=== PATIENT | female | born 1965 | race Caucasian/White ===

== ENCOUNTER 2016-10-23 10:19 | Observation (INO) | payer BC ==
[~2016-10-23] VITALS: Ht 157.5 cm; Wt 78.8 kg
[2016-10-23] MEDS ORDERED: NITROGLYCERIN 2% 1 GM OINT PKT TD STA (11:40)
[2016-10-23] MEDS ORDERED: ASPIRIN 325 MG TAB PO STA (11:40)
[2016-10-23] MEDS ORDERED: LOSA1TAB20 PO (11:59)
[2016-10-23] MEDS ORDERED: MTF1000T PO (11:59)
--- NOTE | 2016-10-23 12:24 | RADRPT ---
PROCEDURE: XR Chest. CLINICAL INDICATION: Chest pain. TECHNIQUE: Single frontal view of the chest was obtained COMPARISON: No. FINDINGS: The cardiomediastinal silhouette, pulmonary vasculature and shubham are unremarkable. The lungs are cl ear. There are degenerative osteophytes in the thoracic spine. The soft tissues are normal. IMPRESSION: 1. Normal chest x-ray. 2. Spondylosis of the thoracic spine. RPTAT:AAJJ Physician Tarsha Date Time Electronically viewed and signed by Physician Tarsha on 10/23/2016 12:24 /
[2016-10-23 12:31] LABS: BASOPHILS % 0.4 % (0.0-2.0); EOSINOPHILS # 0.1 10^3/ul (0.0-0.5); EOSINOPHILS % 0.7 % (0.0-7.0); HEMATOCRIT 39.9 % (37.0-47.0); HEMOGLOBIN 13.6 g/dl (12.0-16.0); LYMPHOCYTES % 31.4 % (15.0-51.0); MEAN CORPUSCULAR VOLUME 79.4 fl (82.0-101.0); MEAN PLATELET VOLUME 9.4 fl (7.4-10.4); MONOCYTE # 0.5 10^3/ul (0.3-0.9); MONOCYTES % 5.6 % (0.0-11.0); NEUTROPHIL # 5.9 10^3/ul (1.6-7.5); NEUTROPHILS % 61.9 % (39.0-77.0); PLATELET COUNT 256 10^3/UL (140-440); RED BLOOD COUNT 5.02 10^6/ul (4.20-5.40); RED CELL DISTRIBUTION WIDTH 13.2 % (11.5-14.5); UNCORRECTED WBC 9.6 10^3/ul (4.8-10.8); WHITE BLOOD COUNT 9.6 10^3/ul (4.8-10.8)
[2016-10-23 12:38] LABS: CONDITION 1; LH ANALYZER COMMENTS 1
[2016-10-23 12:42] LABS: INR 0.9; PROTIME 12.1 Sec (12.2-14.2); PT RATIO 0.9
[2016-10-23 12:43] LABS: PARTIAL THROMBOPLASTIN TIME 26.9 Sec (25.0-35.0)
[2016-10-23 12:45] LABS: CHLORIDE 105 mmol/L (97-110); POTASSIUM 4.1 mmol/L (3.5-5.1); SODIUM 144 mmol/L (135-144)
[2016-10-23 12:48] LABS: ANION GAP 17 (8-16); CARBON DIOXIDE 26 mmol/L (21-31); CREATININE 0.62 mg/dl (0.44-1.00)
[2016-10-23 12:49] LABS: BLOOD UREA NITROGEN 13 mg/dl (7-20); CALCIUM 9.2 mg/dl (8.4-10.2); GLUCOSE 211 mg/dl (70-220)
[2016-10-23] MEDS ORDERED: NOVO7030 SC (12:53)
--- NOTE | 2016-10-23 12:58 | ERA ---
ER Documentation Chief Complaint Date/Time DATE: 10/23/16 TIME: 12:55 Chief Complaint headache and bilateral ear pain with mild sob. onset this morning. no cough HPI This a 51-year-old female with a history of hypertension, diabetes, high cholesterol with CAD in her family history complaining of substernal chest pressure this morning with radiation down both arms along with some shortness of breath and diaphoresis and brief episode of palpitations. Currently she is pain-free. She also states she has a mild headache. No fever no cough no dyspnea on exertion no recent exertional chest pain. She has no prior cardiac workup. ROS All systems reviewed and are negative except as per history of present illness. Medications Home Meds Reported Medications Insulin Isophan/Regular (Humulin 70/30) 100 Units/Ml Susp, 26 UNITS SC BID, EA 10/23/16 Metformin* (Glucophage*) 1,000 Mg Tablet, 1000 MG PO BID, #60 TAB 10/23/16 Losartan-Hydrochlorothiazide (Losartan-HCTZ) 100-25 Mg Tab, 1 TAB PO DAILY, TAB 10/23/16 PMhx/Soc History of Surgery: No Anesthesia Reaction: No Hx Neurological Disorder: No Hx Respiratory Disorders: No Hx Cardiac Disorders: Yes (HTN) Hx Psychiatric Problems: No Hx Alcohol Use: No Hx Substance Use: No Hx Tobacco Use: No Smoking Status: Never smoker FmHx Family History: coronary disease Physical Exam Vitals Vital Signs Date Time Temp Pulse Resp B/P Pulse Ox O2 Delivery O2 Flow Rate FiO2 10/23/16 12:21 Nasal Cannula 2 10/23/16 11:55 98.2 68 20 169/103 100 Nasal Cannula 2.0 10/23/16 10:22 99.4 84 22 139/85 100 Physical Exam Const: Well-developed, well-nourished Head: Atraumatic, normocephalic Eyes: Normal Conjunctiva, PERRLA, EOMI, normal sclera, no nystagmus ENT: Normal External Ears, Nose and Mouth, moist mucus membranes. Neck: Full range of motion. No meningismus, no lymphadenopathy. Resp: Clear to auscultation bilaterally, no wheezing, rhonchi, rales Cardio: Regular rate and rhythm, no murmurs, S1 S2 present Abd: Soft, non tender x 4, non distended. Normal bowel sounds, no guarding or rebound, no pulsitile abdominal masses or bruits Skin: No petechiae or rashes, no ecchymosis , no maculopapular rash Back: No midline or flank tenderness Ext: No cyanosis, or edema, FROM x 4, normal inspection, neurovascularly intact x 4 Neur: Awake and alert, STR 5/5 x 4, sensation intact x 4, no focal findings, cerebellum intact Psych: Normal Mood and Affect Result Diagram: 10/23/16 1215 10/23/16 1215 Results 24 hrs Laboratory Tests Test 10/23/16 12:15 Activated Partial Thromboplast Time 26.9Sec Anion Gap 17 Basophils # 0.010^3/ul Basophils % 0.4% Blood Morphology Comment Blood Urea Nitrogen 13mg/dl Calcium Level 9.2mg/dl Carbon Dioxide Level 26mmol/L Chloride Level 105mmol/L Creatinine 0.62mg/dl Eosinophils # 0.110^3/ul Eosinophils % 0.7% Glucose Level 211mg/dl Hematocrit 39.9% Hemoglobin 13.6g/dl INR International Normalized Ratio 0.90 Lymphocytes # 3.010^3/ul Lymphocytes % 31.4% Mean Corpuscular Hemoglobin 27.0pg Mean Corpuscular Hemoglobin Concent 34.0g/dl Mean Corpuscular Volume 79.4fl Mean Platelet Volume 9.4fl Monocytes # 0.510^3/ul Monocytes % 5.6% Neutrophils # 5.910^3/ul Neutrophils % 61.9% Nucleated Red Blood Cells # 0.010^3/ul Nucleated Red Blood Cells % 0.0/100WBC Platelet Count 03707^3/UL Potassium Level 4.1mmol/L Prothrombin Time 12.1Sec Prothrombin Time Ratio 0.9 Red Blood Count 5.0210^6/ul Red Cell Distribution Width 13.2% Sodium Level 144mmol/L Troponin I Pending White Blood Count 9.610^3/ul Current Medications Medications (Trade) Dose Ordered Sig/Aftab Route PRN Reason Start Time Stop Time Status Last Admin Dose Admin Aspirin (Aspirin) 325 mg ONCE STAT PO 10/23/16 11:40 10/23/16 11:46 DC 10/23/16 12:27 Nitroglycerin (Nitroglycerin 2% Oint) 1 inch ONCE STAT TD 10/23/16 11:40 10/23/16 11:46 DC 10/23/16 12:27 Procedures/MDM EKG: Rate/Rhythm: Normal Sinus Rhythm,NL intervals QRS, ST, QT: NORMAL DE, QRS, QT] Impression: NORMAL EKG PROCEDURE: XR Chest. CLINICAL INDICATION: Chest pain. TECHNIQUE: Single frontal view of the chest was obtained COMPARISON: No. FINDINGS: The cardiomediastinal silhouette, pulmonary vasculature and shubham are unremarkable. The lungs are clear. There are degenerative osteophytes in the thoracic spine. The soft tissues are normal. IMPRESSION: 1. Normal chest x-ray. 2. Spondylosis of the thoracic spine. RPTAT:AAJJ Physician Tarsha Date Time Electronically viewed and signed by Rex Lim Physician on 10/23/2016 12:24 JM/ CC: BRICE LOPEZ DO Patient's symptoms are concerning for cardiac cause will require inpatient workup and continuous monitoring. Further w/u for ischemia, arrhythmia, PE or dissection will be deferred to the inpatient team. Accepting Care Team: Current data and ongoing care discussed. Time: Time of admission Primary Provider: michael Consulting: LAUREN Outstanding Data: none Departure Diagnosis: Primary Impression: Chest pain Qualified Code: R07.9 - Chest pain, unspecified type Condition: Stable BRICE LOPEZ DO Oct 23, 2016 12:58
[2016-10-23 13:04] LABS: TROPONIN-I < 0.012 ng/ml (0.00-0.12)
[2016-10-23] MEDS ORDERED: SOD CHLORIDE 0.9% 1,000 ML IV SCH (14:03)
[2016-10-23] MEDS ORDERED: ONDANSETRON 4 MG INJ IV PRN ×2 (14:30→15:00)
[2016-10-23] MEDS ORDERED: ACETAMINOPHEN 325 MG TAB PO PRN ×2 (14:30→15:00)
[2016-10-23] MEDS ORDERED: HYDROCODONE/APAP (5/325) TAB PO PRN (15:00)
[2016-10-23] MEDS ORDERED: NACL 0.9% 3 ML SYG IV SCH (15:00)
[2016-10-23] MEDS ORDERED: MAGNESIUM HYDROXIDE 30ML CUP PO PRN (15:00)
[2016-10-23] MEDS ORDERED: BISACODYL (EC) 5 MG TAB PO PRN (15:00)
[2016-10-23] MEDS ORDERED: morphine 2 MG INJ IV PRN (15:00)
[2016-10-23] MEDS ORDERED: GLUCAGON 1 MG INJ IM PRN (15:30)
[2016-10-23] MEDS ORDERED: GLUCOSE GEL 15 GRAM TUBE BUCCAL PRN (15:30)
[2016-10-23] MEDS ORDERED: DEXTROSE 50% 50 ML SYRINGE IV PRN ×2 (15:30)
[2016-10-23] MEDS ORDERED: GLUCOSE GEL 15 GRAM TUBE PO PRN ×2 (15:30)
[2016-10-23] MEDS ORDERED: hydrALAzine 20 MG INJ IV PRN (15:30)
[2016-10-23 16:19] VITALS: TEMP 99.1
--- NOTE | 2016-10-23 17:16 | HP ---
DATE OF ADMISSION: 10/23/2016 TIME OF EVALUATION: 1500. REASON FOR ADMISSION: Chest pressure, palpitations, headache, bilateral upper extremity numbness. CONSULTATIONS: Dr. Lon Faust, Cardiology. HISTORY OF PRESENT ILLNESS: This is a 51-year-old female with past medical history of essential hypertension, type 2 diabetes mellitus, and hyperlipidemia who has family history of early coronary artery disease. She came to the emergency room with multiple complaints. One of her chief complaint was chest pressure/pain that started on the morning of 10/23/2016. The patient described her chest pressure as nonexertional. The patient was also complaining of associated bilateral upper extremity numbness and dyspnea along with diaphoresis and palpitations. The patient denied any nausea or vomiting. The patient was also complaining of nonspecific headache as well as bilateral ear pain. The patient denied any cough. The patient verbalized that she has been compliant with all her home medications. As per the patient, she has strong family history of heart disease. Her brother at the age of 55 years because of a heart attack. The patient's mother of heart disease in her 70s. The patient verbalized that she has been admitted to [facility] in 2008 because of similar complaints when she had a left heart catheterization that apparently was "normal." The patient denied any fevers or chills. The patient denied any loss of consciousness. She denied any recent long travels. The patient denied any calf pain. In the emergency room, the patient underwent a 12-lead EKG that showed a normal sinus rhythm. The patient's initial troponin was negative. The patient's chest x-ray was negative for any acute cardiopulmonary findings. The patient was treated with oral aspirin and transdermal nitroglycerin in the emergency room. PAST MEDICAL HISTORY: Essential hypertension, type 2 diabetes mellitus, hyperlipidemia. PAST SURGICAL HISTORY: Appendectomy. HOME MEDICATIONS: 1. Losartan with hydrochlorothiazide 100/25 mg 1 tablet p.o. daily. 2. Humulin 70/30, 26 units subcutaneously b.i.d. 3. Metformin 1000 mg p.o. b.i.d. ALLERGIES: NO KNOWN DRUG ALLERGIES. SOCIAL HISTORY: The patient lives at home with her family. 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 The patient has a remote history of smoking. She quit smoking 6 years ago. The patient is a social drinker. Denies any use of illicit drugs. REVIEW OF SYSTEMS: A 14-point review of systems was made and review of systems was negative other than what is mentioned in history of present illness. PHYSICAL EXAMINATION: VITAL SIGNS: Temperature 98.2, pulse rate 68, respiratory rate 18, blood pressure 131/71, oxygen saturation 98% on low flow O2. GENERAL: This is an obese female lying in bed in no apparent distress. HEENT: Head normocephalic and atraumatic. Eyes: Anicteric sclerae. EXTREMITIES: Clear. ENT: Nasal septum is midline. Oral mucosa is dry. NECK: Short and obese. Unable to visualize any neck veins. CARDIAC: Regular rate and rhythm. No obvious murmurs heard. RESPIRATORY: Bilaterally diminished breath sounds. No adventitious breath sounds. No use of accessory muscles of respiration. GASTROINTESTINAL: Abdomen soft, nontender and nondistended. Bowel sounds positive in all 4 quadrants. GENITOURINARY: Deferred. EXTREMITIES: No cyanosis, no clubbing, no edema. Peripheral pulses palpable. NEUROLOGIC: The patient is awake, alert and oriented. Cranial nerves are grossly intact. LABORATORY AND DIAGNOSTIC DATA: WBC 9.6, hemoglobin 13.6, hematocrit 39.9, platelet count 256. Sodium 144, potassium 4.1, chloride 105, carbon dioxide 26 , anion gap 17, BUN 13, creatinine 0.62, glucose 211, calcium 9.2. Troponin less than 0.012. PT 12.1, INR 0.93, PTT 26.9. Chest x-ray: Normal chest x-ray with spondylosis of the thoracic spine. 12-lead EKG: Normal sinus rhythm. IMPRESSION: This is a 51-year-old female with multiple comorbidities who came to the emergency room with multiple complaints who will be admitted here for further treatment and evaluation. ASSESSMENT AND PLAN: 1. Chest pain/pressure. We will rule out the patient for any acute coronary syndrome. Serial troponins will be obtained. A 2D echocardiogram will be obtained to evaluate the left ventricular ejection fraction. Cardiology consult will be obtained. The patient will be started on aspirin. 2. Essential hypertension. The patient will be started on antihypertensives including p.r.n. antihypertensives for any systolic blood pressure readings greater than 160 mmHg. 3. Dyslipidemia. The patient will be started on a low cholesterol diet. A fasting lipid panel will be obtained. 4. Type 2 diabetes mellitus. The patient will be started on a carbohydrate controlled diet. A hemoglobin A1c will be obtained to evaluate the blood glucose control over the past few weeks. The patient's metformin will be put on hold at this time. The patient will be started on sliding scale insulin along with basal insulin and Lantus insulin. 5. Obesity. Weight reduction will be advised. A fasting lipid panel and hemoglobin A1c will be obtained. Plan. The patient will be admitted to inpatient telemetry floor. The patient will be started on a low cholesterol, carbohydrate controlled diet. The patient will be started on DVT prophylaxis and gastrointestinal prophylaxis. Activities will be as tolerated. Baseline labs including hemoglobin A1c, fasting lipid panel and thyroid panel will be obtained. The rest of the patient's management will be based on the clinical course, the results of diagnostic studies, and inputs from consultants. Based on the patient's clinical presentation, she most probably requires at least 1 midnight's stay for further management and evaluation of her clinical presentation. The case and management of this patient was fully discussed with Dr. Haskins. Approximately 50 minutes was spent on the history and physical of this patient. KENNY HASKINS MD, AM/KATARZYNA Conf#: [id number] DID#: [id number] MTDD
[2016-10-23 17:39] LABS: CK-MB 0.48 ng/ml (0.0-2.4)
[2016-10-23] MEDS: INSULIN ASPART [NOVOLOG] 3 ML PEN SC SCH ×3 (18:00→21:42)
[2016-10-23 18:01] LABS: THYROID STIMULATING HORMONE 3.49 MIU/L (0.465-4.680)
[2016-10-23 20:43] VITALS: PULSE 75
[2016-10-23 20:57] VITALS: BP 149/68; RESP 20
[2016-10-23] MEDS ORDERED: INSULIN GLARGINE [LANtus] 3 ML PEN SC SCH (21:00)
[2016-10-23] MEDS: FAMOTIDINE 20 MG TAB PO SCH (21:36)
[2016-10-23 22:00] VITALS: Ht 157.5 cm; Wt 78.8 kg
[2016-10-23 22:21] LABS: CREATINE KINASE 36 IU/L (23-200)
[2016-10-23 22:29] LABS: CK-MB 0.29 ng/ml (0.0-2.4)
[2016-10-23 22:33] LABS: TROPONIN-I < 0.012 ng/ml (0.00-0.12)
[2016-10-24] VITALS (8 sets, daily range): BP systolic 142–167; BP diastolic 69–81; PULSE 57–70; RESP 17–20
[2016-10-24 06:52] LABS: BASOPHILS % 0.4 % (0.0-2.0); EOSINOPHILS # 0.1 10^3/ul (0.0-0.5); EOSINOPHILS % 1.3 % (0.0-7.0); HEMATOCRIT 35.1 % (37.0-47.0); LYMPHOCYTES # 2.5 10^3/ul (0.8-2.9); LYMPHOCYTES % 27.8 % (15.0-51.0); MEAN CORPUSCULAR HEMOGLOBIN 27.2 pg (29.0-33.0); MEAN CORPUSCULAR HGB CONC 34.1 g/dl (32.0-37.0); MEAN CORPUSCULAR VOLUME 79.7 fl (82.0-101.0); MEAN PLATELET VOLUME 9.2 fl (7.4-10.4); MONOCYTE # 0.7 10^3/ul (0.3-0.9); MONOCYTES % 7.9 % (0.0-11.0); NEUTROPHIL # 5.7 10^3/ul (1.6-7.5); NEUTROPHILS % 62.6 % (39.0-77.0); PLATELET COUNT 208 10^3/UL (140-440); RED BLOOD COUNT 4.41 10^6/ul (4.20-5.40); RED CELL DISTRIBUTION WIDTH 13.4 % (11.5-14.5); UNCORRECTED WBC 9.2 10^3/ul (4.8-10.8); WHITE BLOOD COUNT 9.2 10^3/ul (4.8-10.8)
[2016-10-24 07:15] LABS: CHOLESTEROL 138 mg/dl (100-200); POTASSIUM 3.9 mmol/L (3.5-5.1)
[2016-10-24 07:16] LABS: CHOL/HDL RATIO 2.8 RATIO; HDL CHOLESTEROL 48 mg/dl (37-92); PHOSPHORUS 4.1 mg/dl (2.5-4.9); TRIGLYCERIDES 214 mg/dl (0-149)
[2016-10-24 07:18] LABS: CREATININE 0.65 mg/dl (0.44-1.00)
[2016-10-24 07:19] LABS: CALCIUM 8.5 mg/dl (8.4-10.2)
[2016-10-24 07:28] LABS: TROPONIN-I < 0.012 ng/ml (0.00-0.12)
[2016-10-24 07:29] LABS: CONDITION 1; LH ANALYZER COMMENTS 1
[2016-10-24] MEDS ORDERED: ENOXAPARIN 40 MG/0.4 ML SYG SC SCH (09:00)
[2016-10-24] MEDS ORDERED: LOSARTAN 50 MG TAB PO SCH (09:00)
[2016-10-24] MEDS ORDERED: ASPIRIN 81 MG TAB PO SCH (09:00)
[2016-10-24] MEDS: FAMOTIDINE 20 MG TAB PO SCH (09:03)
[2016-10-24] MEDS: INSULIN ASPART [NOVOLOG] 3 ML PEN SC SCH ×4 (09:07→11:48)
--- NOTE | 2016-10-24 10:24 | PDOCDIS ---
Discharge Instructions CONDITION Patient Condition: Good HOME CARE INSTRUCTIONS: Special Diet: cardiac carb controlled ACTIVITY: Activity Restrictions: No Restrictions FOLLOW UP/APPOINTMENTS Appointments Follow up with cardiology as out-pt for possible Stress test CORNELIO SELF MD Oct 24, 2016 10:24
[2016-10-24] MEDS ORDERED: ASPI81TA3 PO (10:28)
[2016-10-24] MEDS ORDERED: CYCL5TAB PO (10:28)
[2016-10-24 10:30] LABS: BARBITURATES NEGATIVE (NEGATIVE); BENZODIAZEPINES NEGATIVE (NEGATIVE); CANNABINOIDS NEGATIVE (NEGATIVE); COCAINE NEGATIVE (NEGATIVE); OPIATES POSITIVE (NEGATIVE)
[2016-10-24] MEDS ORDERED: IBUP200C PO (10:40)
[2016-10-24] MEDS ORDERED: IBUPROFEN 400 MG TAB PO ONE (11:00)
[2016-10-24] MEDS ORDERED: IBUPROFEN 400 MG TAB PO PRN (11:00)
--- NOTE | 2016-10-24 11:55 | RADRPT ---
Echocardiogram Report Patient Name: PHILLY MALHOTRA Gender: Female Date: 1965 Study Date: 23-Oct-2016 Logistics Administrator: Brenden Jarvis RDCS Location: [facility] Ref. Physician: KENNY RODRIGUEZ Quality: Technically Difficult Study Procedures: Transthoracic echocardiogram with complete 2D, M-Mode, and doppler examination. Indications: Chest Pain. 2D/M Mode Doppler Measurement Value Normal Ranges Measurement Value Normal Ranges LVIDd 2D 4.5 3.5 - 5.6 cm AV Mean Grant 1.4 m/sec LVIDs 2D 2.1 2.1 - 4.1 cm AV Mean PG 10.0 mmHg FS 2D 54.0 % AV Peak Grant 2.1 m/sec LVPWd 2D 0.9 0.6 - 1.1 cm AV Peak PG 18.0 mmHg IVSd 2D 0.9 0.6 - 1.1 cm AV VTI 43.6 cm IVS/LVPW 2D 0.9 LVOT Mean Grant 0.6 m/sec AoR Diam 2D 2.7 2.0 - 3.7 cm LVOT Mean PG 2.0 mmHg LA/Ao 2D 1 0 - 1 LVOT Peak Grant 1.0 m/sec EDV 2D 89.9 cm3 LVOT Peak PG 4.0 mmHg ESV 2D 8.7 cm3 LVOT VTI 23.7 cm LA Dimen 2D 3.6 2.3 - 4.0 cm MV E Peak Grant 1.0 m/sec MV A Peak Grant 1.1 m/sec MV E/A 0.9 MV Decel Time 218 msec MV E/A 0.9 Findings Left Ventricle: Normal left ventricular systolic function. Normal left ventricular cavity size. Normal left ventricular wall thickness. Ejection fraction is visually estimated at 65 %. Tissue Doppler/Mitral Doppler indices are consistent with impaired relaxation (Stage I diastolic dysfunction). Right Ventricle: Normal right ventricular size. Normal right ventricular systolic function. Left Atrium: The left atrium is normal in size. Right Atrium: The right atrium is normal in size. Mitral Valve: Normal appearance and function of the mitral valve with trace physiologic regurgitation. Aortic Valve: Aortic sclerosis without stenosis. Aortic cusps appear mildly calcified. Trace aortic valve regurgitation. Tricuspid Valve: Normal appearance and function of the tricuspid valve with trace physiologic regurgitation. Pericardium: Normal pericardium with no significant pericardial effusion. Aorta: Normal aortic root. IVC: Normal size and normal respiratory collapse consistent with normal right atrial pressure. Conclusions Normal left ventricular systolic function. Normal left ventricular cavity size. Normal left ventricular wall thickness. Ejection fraction is visually estimated at 65 %. Tissue Doppler/Mitral Doppler indices are consistent with impaired relaxation (Stage I diastolic dysfunction). Normal right ventricular size. Normal right ventricular systolic function. The left atrium is normal in size. The right atrium is normal in size. No significant valvular stenosis or regurgitation seen. Normal pericardium with no significant pericardial effusion. Electronically Signed By: Lon Faust 24-Oct-2016 11:55:06 -0800 Patient Name: PHILLY MALHOTRA Study Date: 23-Oct-2016 [id number]
--- NOTE | 2016-10-24 15:26 | CONS ---
Date/Time of Note Date/Time of Note DATE: 10/24/16 TIME: 15:21 Assessment/Plan Assessment/Plan Additional Assessment/Plan Bilateral hand, shoulder, chest pain and headache Preserved ejection fraction Hypertension Diabetes Dyslipidemia -Serial cardiac enzymes have remained negative, ECG with nonspecific findings, echocardiogram within normal limits. Our patient's symptoms are exacerbated by arm movements as well as palpation of the arms and chest. Her symptoms do not appear cardiac in origin. Furthermore, her symptoms have improved since admission. No further inpatient cardiac workup needed at the current time. Consultation Date/Type/Reason Admit Date/Time Oct 23, 2016 at 20:55 Type of Consultation: cv Reason for Consultation Head, shoulder, hand and chest pain Hx of Present Illness This is a 51-year-old female who presents with 3-4 days of bilateral arm, shoulder and headache. Pain feels like pins and needles in her arms. Worse with bending her arms and raising her arms. When she raises her arms, she feels pain radiating down to her shoulders and her chest. She also complains of a headache for the past 2 days. Exertion does not improve or worsen her symptoms. Her symptoms are exacerbated with arm movements mostly. Her chest pain starts from the shoulders and goes down to her chest. She denies any shortness of breath, dizziness or lightheadedness. She still has a headache today. Her shoulder pain and chest pain has improved but her hand numbness continues. She denies any fevers or chills, does have intermittent abdominal pain, denies nausea. 12 point review of systems was performed with all pertinent positives and negatives mentioned above and all else is negative Past Medical History Medical History: diabetes, high cholesterol, hypertension Family History Significant Family History: other (mother secondary to "heart problems" at 75) Social History Alcohol Use: occasionally Smoking Status: Former smoker Drug Use: none Exam/Review of Systems Vital Signs Vitals Vital Signs Date Time Temp Pulse Resp B/P Pulse Ox O2 Delivery O2 Flow Rate FiO2 10/24/16 12:40 70 10/24/16 11:44 97.9 17 159/74 96 10/23/16 15:00 Nasal Cannula 2.0 Intake and Output 10/23/16 10/23/16 10/24/16 15:00 23:00 07:00 Intake Total 400 ml Balance 400 ml Exam No apparent distress Constitutional: alert, obese, oriented Head: normocephalic Neck: supple Respiratory: other (course breath sounds bilaterally, no wheezing) Cardiovascular: other (S1-S2 heard, no murmurs appreciated), regular rate and rhythm Gastrointestinal: bowel sounds, non-tender, other (no guarding), soft Musculoskeletal: other (pain with palpation of bilateral shoulders and range of motion. Pain with palpation of chest wall) Extremities: other (no edema) Results Result Diagram: 10/24/1662110/24/16 0622 Results 24 hrs Laboratory Tests Test 10/23/16 20:02 10/23/16 21:32 10/23/16 21:37 10/24/16 02:21 Bedside Glucose 225 H 258 H 252 H Creatine Kinase 36 Creatine Kinase Index 0.8 Creatinine Kinase MB (Mass) 0.29 Troponin I < 0.012 Test 10/24/16 06:00 10/24/16 06:22 10/24/16 07:57 10/24/16 11:43 Urine Amphetamines Screen NEGATIVE Urine Barbiturates NEGATIVE Urine Benzodiazepines Screen NEGATIVE Urine Cannabinoids NEGATIVE Urine Cocaine Screen NEGATIVE Urine Opiates Screen POSITIVE Urine Test NEGATIVE Anion Gap 13 Basophils # 0.0 Basophils % 0.4 Blood Morphology Comment Blood Urea Nitrogen 11 Calcium Level 8.5 Carbon Dioxide Level 28 Chloride Level 105 Cholesterol Level 138 Cholesterol/HDL Ratio 2.8 Creatinine 0.65 Eosinophils # 0.1 Eosinophils % 1.3 Glucose Level 171 HDL Cholesterol 48 Hematocrit 35.1 L Hemoglobin 12.0 LDL Cholesterol, Calculated 47 Lymphocytes # 2.5 Lymphocytes % 27.8 Magnesium Level 2.0 Mean Corpuscular Hemoglobin 27.2 L Mean Corpuscular Hemoglobin Concent 34.1 Mean Corpuscular Volume 79.7 L Mean Platelet Volume 9.2 Monocytes # 0.7 Monocytes % 7.9 Neutrophils # 5.7 Neutrophils % 62.6 Nucleated Red Blood Cells # 0.0 Nucleated Red Blood Cells % 0.0 Phosphorus Level 4.1 Platelet Count 208 Potassium Level 3.9 Red Blood Count 4.41 Red Cell Distribution Width 13.4 Sodium Level 142 Triglycerides Level 214 H Troponin I < 0.012 White Blood Count 9.2 Bedside Glucose 203 247 H Medications Medications Current Medications Ondansetron HCl (Zofran Inj) 4 mg Q6H PRN IV NAUSEA AND/OR VOMITING; Start 10/23 at 15:00 Aspirin (Aspirin) 81 mg DAILY PO Last administered on 10/24/16 09:03; Admin Dose 81 MG; Start 10/24/16 at 09:00 Acetaminophen (Tylenol Tab) 650 mg Q6H PRN PO PAIN LEVEL 1-3 OR FEVER Last administered on 10/24/16 02:27; Admin Dose 650 MG; Start 10/23/16 at 15:00 Acetaminophen/ Hydrocodone Bitart ([place] (5/325)) 1 tab Q6H PRN PO PAIN LEVEL 4 -6 Last administered on 10/23/16 18:46; Admin Dose 1 TAB; Start 10/23/16 at 15:00 Morphine Sulfate (morphine) 2 mg Q4H PRN IV PAIN LEVEL 7-10; Start 10/23/16 at 15:00 Magnesium Hydroxide (Milk Of Mag) 30 ml DAILY PRN PO CONSTIPATION; Start at 15:00 Bisacodyl (Dulcolax) 5 mg DAILY PRN PO CONSTIPATION; Start 10/23/16 at 15:00 Famotidine (Pepcid) 20 mg Q12 PO Last administered on 10/24/16 09:03; Admin Dose 20 MG; Start 10/23/16 at 21:00 Enoxaparin Sodium (Lovenox) 40 mg DAILY SC Last administered on 10/24/16 09:07 ; Admin Dose 40 MG; Start 10/24/16 at 09:00 Hydralazine HCl (Apresoline) 10 mg Q6H PRN IV SBP>160; Start 10/23/16 at 15:30 Insulin Glargine (Lantus) 8 unit HS SC Last administered on 10/23/16 21:00; Admin Dose 8 UNIT; Start 10/23/16 at 21:00 Losartan Potassium (Cozaar) 100 mg DAILY PO Last administered on 10/24/16 09:04 ; Admin Dose 100 MG; Start 10/24/16 at 09:00 Miscellaneous Information 1 ea NOTE XX ; Start 10/23/16 at 15:30 Glucose (Glutose) 15 gm Q15M PRN PO DECREASED GLUCOSE; Start 10/23/16 at 15:30 Glucose (Glutose) 22.5 gm Q15M PRN PO DECREASED GLUCOSE; Start 10/23/16 at 15:30 Dextrose (D50w Syringe) 25 ml Q15M PRN IV DECREASED GLUCOSE; Start 10/23/16 at 15:30 Dextrose (D50w Syringe) 50 ml Q15M PRN IV DECREASED GLUCOSE; Start 10/23/16 at 15:30 Glucagon (Glucagen) 1 mg Q15M PRN IM DECREASED GLUCOSE; Start 10/23/16 at 15:30 Glucose (Glutose) 15 gm Q15M PRN BUCCAL DECREASED GLUCOSE; Start 10/23/16 at 15: 30 Ibuprofen (Motrin) 400 mg Q6H PRN PO PAIN OR TEMP ABOVE 38C; Start 10/24/16 at 11:00 Procedures Procedures Sinus rhythm at 68 bpm, normal QRS duration, nonspecific STT wave abnormalities Lon Faust DO Oct 24, 2016 15:26
--- NOTE | 2016-10-25 06:52 | DS ---
DATE OF ADMISSION: 10/23/2016 DATE OF DISCHARGE: 10/24/2016 CONSULTANTS: Cardiology. PROCEDURE: A 2D echocardiogram. DISCHARGE DIAGNOSES: 1. Atypical chest pain, likely secondary to costochondritis, acute coronary syndrome was ruled out by negative troponin. 2. Diabetes mellitus, moderately controlled on Lantus and metformin. 3. Essential hypertension, well controlled on Losartan and hydrochlorothiazide. 4. Essential hypertriglyceridemia. This is likely secondary to diabetes mellitus. Continue to mon itor and treat diabetes mellitus. 5. Morbid obesity with BMI of 31.8. Diet and exercise was recommended. LABORATORIES: Sodium 142, potassium 3.9, chloride 105, bicarbonate 26, BUN 11, creatinine 0.65, glu cose 171. Hemoglobin A1c 11.5. Calcium 8.5. Troponin negative x4. Triglycerides 214, total mar sterol 138, LDL 47, HDL 48. TSH 3.4. Free T4 0.92. WBC 9.3, hemoglobin 12, hematocrit 35.1, plate let 208. Chest x-ray: Normal chest x-ray. Spondylosis of the thoracic spine. MEDICATIONS: 1. Aspirin 81 mg p.o. daily. 2. Cyclobenzaprine 5 mg p.o. q.8 hours. 3. Insulin 70/30. 4. Losartan/hydrochlorothiazide 100/25 5. Metformin 1000 mg p.o. b.i.d. ALLERGIES: NO KNOWN DRUG ALLERGIES. HOSPITAL COURSE: This is a 51-year-old female with past medical history of morbid obesity, hyperten scar, diabetes mellitus, who presents to [facility] secondary to having anterior c hest discomfort, pressure-like, which increases with mobility. There is no diaphoresis or shortnes s of breath, and patient's EKG demonstrated normal sinus rhythm, the patient's serial troponin was f ound to negative. She was started on morphine, nitroglycerin, oxygen and aspirin during the course of the hospitalization. Cardiology was consulted. A 2D echocardiogram was obtained. The patient h as been continued on aggressive medical management. Her lipid panel showed hypertriglyceridemia. T his is likely secondary to patient's uncontrolled diabetic mellitus with hemoglobin A1c 11.9, her in sulin was readjusted. Her blood pressure is well controlled on Losartan. At this time, patient is not a candidate for any beta shelbie secondary to mild bradycardia with heart rate ranging between 5 7 to 63. At this time, the patient is medically stable to be discharged home with a close followup with cardiology as outpatient. Upon examination and palpation of the anterior chest and posterior t horax, the pain is reproducible. This is likely secondary to patient's history of spondylolisthesis of the thoracic spine and muscle pain and costochondritis. At this time, patient is medically stab le to be discharged home. Patient will be discharged on pain medications, followup with primary car e physician and cardiology as outpatient. The patient will follow with cardiology as outpatient fo r possible stress test if needed. CONDITION AT TIME OF DISCHARGE: Stable. Dictated By: CORNELIO LIM/NTS Conf#: [id number] DID#: [id number]
== END 2016-10-24 16:08 | disposition home or self-care (01) ==
LOC: E/R 10:19 → TEL 20:55
PROVIDERS: ADMIT Family Medicine; ATTEND Family Medicine
DX: R07.9 Chest pain, unspecified (principal); I10 Essential (primary) hypertension; E11.9 Type 2 diabetes mellitus without complications; Z79.4 Long term (current) use of insulin; E78.00 Pure hypercholesterolemia, unspecified; E78.5 Hyperlipidemia, unspecified; E78.1 Pure hyperglyceridemia; I25.10 Atherosclerotic heart disease of native coronary artery without angina pectoris; Z87.891 Personal history of nicotine dependence; E66.01 Morbid (severe) obesity due to excess calories; Z68.31 Body mass index [BMI] 31.0-31.9, adult; Z82.49 Family history of ischemic heart disease and other diseases of the circulatory system
CPT/HCPCS: 36415; 71010; 80048; 80061; 80307; 82550; 82553; 82652; 82962; 83036; 83735; 84100; 84439; 84443; 84484; 84703; 85025; 85610; 85730; 93005; 93306; 96372; 99217; 99285; J1650; J1815; J7030; G0378; J2270

== ENCOUNTER 2016-11-28 09:11 | Emergency (ER) | payer BC ==
[~2016-11-28] VITALS: Ht 154.9 cm; Wt 79.0 kg
[~2016-11-28 09:11] MED LIST: ASPI81TA3 PO; CYCL5TAB PO; IBUP200C PO; LOSA1TAB20 PO; MTF1000T PO; NOVO7030 SC
[2016-11-28 09:18] VITALS: Ht 154.9 cm; Wt 79.0 kg
[2016-11-28] MEDS ORDERED: IBUP-1542 PO (10:14)
[2016-11-28] MEDS ORDERED: AZIT250T94 PO (10:14)
[2016-11-28] MEDS ORDERED: BENZ100C70 PO (10:15)
--- NOTE | 2016-11-28 10:21 | ERD ---
ER Documentation Chief Complaint Date/Time DATE: 11/28/16 TIME: 10:[address] and cough x 1 wk HPI Patient is a 51-year-old female with past medical history of diabetes, hyperlipidemia, hypertension who presents emergency department with a cough and throat pain 2 weeks. Patient states that her cough is productive in nature with green phlegm production. Patient states she has been taking "daytime and nighttime" with no alleviation of symptoms. Patient denies any fevers however she does report chills. Patient denies any nausea, vomiting. Patient states she does have throat pain. She denies any drooling, dysphagia, trismus, or hyperextension of her neck. Patient states that she does have a mild headache. She denies any nausea. Patient denies any chest pain, shortness of breath, diaphoresis, dizziness, blurry vision or loss consciousness. Patient states she did take the flu vaccine this year. Patient denies any sick contacts. ROS All systems reviewed and are negative except as per history of present illness. Medications Home Meds Active Scripts Benzonatate* (Tessalon Perle*) 100 Mg Capsule, 100 MG PO Q8H Y for COUGH, #30 CAP Prov:MALENA RICHMOND PA-C 11/28/16 Azithromycin* (Zithromax*) 250 Mg Tablet, 250 MG PO .ZPACK DIRECTED, #6 TAB TAKE 500 MG (2 TABS) THE FIRST DAY THEN 250 MG (1 TAB) DAYS 2-5 Prov:MALENA RICHMOND PA-C 11/28/16 Ibuprofen* (Motrin*) 600 Mg Tab, 600 MG PO Q6, #30 TAB Prov:MALENA RICHMOND PA-C 11/28/16 Ibuprofen* (Ibuprofen*) 200 Mg Capsule, 200 MG PO Q6 Y for PAIN LEVEL 6-10, #20 CAP Prov:CORNELIO SELF MD 10/24/16 Cyclobenzaprine Hcl* (Cyclobenzaprine Hcl*) 5 Mg Tablet, 5 MG PO Q8H Y for MUSCLE SPASMS, #20 TAB Prov:CORNELIO SELF MD 10/24/16 Aspirin (Aspirin) 81 Mg Chew, 81 MG PO DAILY, #30 TAB Prov:CORNELIO SELF MD 10/24/16 Reported Medications Insulin Isophan/Regular (Humulin 70/30) 100 Units/Ml Susp, 26 UNITS SC BID, EA 10/23/16 Metformin* (Glucophage*) 1,000 Mg Tablet, 1000 MG PO BID, #60 TAB 10/23/16 Losartan-Hydrochlorothiazide (Losartan-HCTZ) 100-25 Mg Tab, 1 TAB PO DAILY, TAB 10/23/16 Allergies Allergies: Coded Allergies: No Known Allergy (Unverified , 10/24/16) PMhx/Soc History of Surgery: Yes (gallstone, appendix) Anesthesia Reaction: No Hx Neurological Disorder: No Hx Respiratory Disorders: No Hx Cardiac Disorders: Yes (HTN ) Hx Psychiatric Problems: No Hx Miscellaneous Medical Probl: Yes (HYPERLIPIDIMIA, dm) Hx Alcohol Use: No Hx Substance Use: No Hx Tobacco Use: No Smoking Status: Never smoker Physical Exam Vitals Vital Signs Date Time Temp Pulse Resp B/P Pulse Ox O2 Delivery O2 Flow Rate FiO2 11/28/16 10:26 78 126/74 11/28/16 09:18 98.6 77 18 164/22 98 Physical Exam GENERAL: Well-developed, well-nourished female. Appears in no acute distress. Speaking in full sentences HEAD: Normocephalic, atraumatic. No deformities or ecchymosis. EYE: Pupils equal, round, and reactive to light. EOMs intact. No conjunctival erythema. No eye discharge. ENT: External ear without any masses or tenderness. Auditory canals clear bilaterally. TM visualized bilaterally, non-erythematous, non-bulging. Nasal mucosa pink with no discharge. Oropharynx is pink without any tonsillar erythema or exudates. No uvula deviation. No kissing tonsils. Nontender to palpation of bilateral mastoid processes NECK: Supple. No meningismus. Normal ROM of the neck. Hyperextension of the neck. LUNG: Coarse breath sounds. HEART: Regular rate and rhythm. No murmurs, rubs or gallops. BACK: No midline tenderness. EXTREMITIES: Equal pulses bilaterally. No peripheral clubbing, cyanosis or edema. No unilateral leg swelling. NEUROLOGIC: Alert and oriented to person, place and time. Moving all four extremities. 5/5 strength in all extremities. Normal speech. Steady gait. SKIN: Normal color. Warm and dry. No rashes or lesions. Procedures/MDM MEDICAL DECISION MAKING: This is a 51-year-old female with past medical history of diabetes, hyperlipidemia, hypertension who presents emergency department with a cough and throat pain 2 weeks. Patient states her cough is productive in nature. Patient states she initially had fevers however they have not resolved. Patient does report chills. Vital signs were reviewed. Patient was afebrile. Patient was not hypoxic. BP was re-checked during ED course given abnormal value at triage. 2nd BP was normal. ENT exam was normal. Lung exam revealed coarse breath sounds. Given these findings, the patient's presentation is most consistent with viral URI vs acute bronchitis. I have a much lower clinical concern for pneumonia, meningitis, sinusitis, otitis externa, acute otitis media , strep pharyngitis, epiglottitis or peritonsillar abscess. PRESCRIPTIONS: Zpak, Tessalon perles, Ibuprofen DISCHARGE: At this time, patient is stable for discharge and outpatient management. Supportive therapies such as OTC throat lozenges, salt water gurgles, popsicles and jello discussed. I have instructed the patient to follow-up with his/her primary care physician in 1-2 days. I have instructed the patient to promptly return to the ER for any new or worsening symptoms including increased pain, swelling, fever, nausea, vomiting, weakness or difficulty breathing. The patient and/or family expressed understanding of and agreement with this plan. All questions were answered. Home care instructions were provided. Patient's blood pressure was elevated (>120/80) but appears stable without evidence of hypertensive emergency, hypertensive urgency or end-organ failure. I had discussion with the patient about the risks of hypertension. I have advised the patient to follow up with his/her primary care physician for outpatient monitoring and treatment for hypertension in 2-3 days. I have instructed the patient to return to the ER for any new or worsening symptoms including chest pain, shortness of breath, headache, blurred vision, confusion, nausea, vomiting or LOC. Departure Diagnosis: Primary Impression: Bronchitis Condition: Stable Patient Instructions: Acute Bronchitis Referrals: COMMUNITY CLINICS YOU HAVE RECEIVED A MEDICAL SCREENING EXAM AND THE RESULTS INDICATE THAT YOU DO NOT HAVE A CONDITION THAT REQUIRES URGENT TREATMENT IN THE EMERGENCY DEPARTMENT. FURTHER EVALUATION AND TREATMENT OF YOUR CONDITION CAN WAIT UNTIL YOU ARE SEEN IN YOUR DOCTORS OFFICE WITHIN THE NEXT 1-2 DAYS. IT IS YOUR RESPONSIBILITY TO MAKE AN APPOINTMENT FOR FOLOW-UP CARE. IF YOU HAVE A PRIMARY DOCTOR --you should call your primary doctor and schedule an appointment IF YOU DO NOT HAVE A PRIMARY DOCTOR YOU CAN CALL OUR PHYSICIAN REFERRAL HOTLINE AT IF YOU CAN NOT AFFORD TO SEE A PHYSICIAN YOU CAN CHOSE FROM THE FOLLOWING [facility] [address] [facility] [address] [facility] [address] [facility] [address] [facility] [address] [facility]. [facility] [address] [facility]. [facility] YOU HAVE RECEIVED A MEDICAL SCREENING EXAM AND THE RESULTS INDICATE THAT YOU DO NOT HAVE A CONDITION THAT REQUIRES URGENT TREATMENT IN THE EMERGENCY DEPARTMENT. FURTHER EVALUATION AND TREATMENT OF YOUR CONDITION CAN WAIT UNTIL YOU ARE SEEN IN YOUR DOCTORS OFFICE WITHIN THE NEXT 1-2 DAYS. IT IS YOUR RESPONSIBILITY TO MAKE AN APPOINTMENT FOR FOLOW-UP CARE. IF YOU HAVE A PRIMARY DOCTOR --you should call your primary doctor and schedule and appointment IF YOU DO NOT HAVE A PRIMARY DOCTOR YOU CAN CALL OUR PHYSICIAN REFERRAL HOTLINE AT . IF YOU CAN NOT AFFORD TO SEE A PHYSICIAN YOU CAN CHOSE FROM THE FOLLOWING [facility]: [facility] [address] [place] [address] [facility] [address] [place] [address] [facility] [address] [place] [address] Additional Instructions: Call your primary care doctor TOMORROW for an appointment during the next 1-2 days.See the doctor sooner or return here if your condition worsens before your appointment time. MALENA RICHMOND PA-C Nov 28, 2016 10:20
[2016-11-28 10:26] VITALS: BP 126/74; PULSE 78
== END 2016-11-28 10:45 | disposition home or self-care (01) ==
LOC: FTE 09:11
DX: J20.9 Acute bronchitis, unspecified (principal); I10 Essential (primary) hypertension; E11.9 Type 2 diabetes mellitus without complications; Z79.82 Long term (current) use of aspirin; Z79.4 Long term (current) use of insulin; Z79.84 Long term (current) use of oral hypoglycemic drugs
CPT/HCPCS: 99284

== ENCOUNTER 2017-08-31 05:44 | Emergency (ER) | payer BC ==
[~2017-08-31] VITALS: Ht 152.4 cm; Wt 70.0 kg
[~2017-08-31 05:44] MED LIST changes: +AZIT250T94 PO; +BENZ100C70 PO; +IBUP-1542 PO; -LOSA1TAB20 PO; +LOSA1TAB25 PO
[2017-08-31 05:48] VITALS: Ht 152.4 cm; Wt 70.0 kg
[2017-08-31 06:18] VITALS: TEMP 98.3
--- NOTE | 2017-08-31 06:54 | ERD ---
ER Documentation Chief Complaint Chief Complaint Pt c/o dizziness with head movement x 30 mins HPI 52-year-old female with a history of diabetes, hypertension and hyperlipidemia presents to the ED via rescue ambulance for evaluation of multiple complaints. Over last several weeks she has had worsening, occipital headache, neck and lower back pain. This morning after taking a shower experience acute onset of generalized weakness, numbness to her tongue and lips, dizziness and almost fell to the ground but was caught by her who helped her to bed. Chronic right ear pain but denies tinnitus or hearing changes. No recent URIs. Symptoms seem to be worsened by standing. Denies abdominal pain, nausea, vomiting, diarrhea or constipation. No chest pain or palpitations. Denies leg pain or swelling. No fevers or chills. ROS All systems reviewed and are negative except as per history of present illness. Medications Home Meds Active Scripts Benzonatate* (Tessalon Perle*) 100 Mg Capsule, 100 MG PO Q8H Y for COUGH, #30 CAP Prov:MALENA RICHMOND PA-C 11/28/16 Azithromycin* (Zithromax*) 250 Mg Tablet, 250 MG PO .ZPACK DIRECTED, #6 TAB TAKE 500 MG (2 TABS) THE FIRST DAY THEN 250 MG (1 TAB) DAYS 2-5 Prov:MALENA RICHMOND PA-C 11/28/16 Ibuprofen* (Motrin*) 600 Mg Tab, 600 MG PO Q6, #30 TAB Prov:MALENA RICHMOND PA-C 11/28/16 Ibuprofen* (Ibuprofen*) 200 Mg Capsule, 200 MG PO Q6 Y for PAIN LEVEL 6-10, #20 CAP Prov:CORNELIO SELF MD 10/24/16 Cyclobenzaprine Hcl* (Cyclobenzaprine Hcl*) 5 Mg Tablet, 5 MG PO Q8H Y for MUSCLE SPASMS, #20 TAB Prov:CORNELIO SELF MD 10/24/16 Aspirin (Aspirin) 81 Mg Chew, 81 MG PO DAILY, #30 TAB Prov:CORNELIO SELF MD 10/24/16 Reported Medications Insulin Isophan/Regular (Humulin 70/30) 100 Units/Ml Susp, 26 UNITS SC BID, EA 10/23/16 Metformin* (Glucophage*) 1,000 Mg Tablet, 1000 MG PO BID, #60 TAB 10/23/16 Losartan-Hydrochlorothiazide (Losartan-HCTZ) 100-25 Mg Tab, 1 TAB PO DAILY, TAB 10/23/16 Allergies Allergies: Coded Allergies: No Known Allergy (Unverified , 10/24/16) PMhx/Soc Reviewed in chart. As per HPI. History of Surgery: Yes (gallstone, appendix) Anesthesia Reaction: No Hx Neurological Disorder: No Hx Respiratory Disorders: No Hx Cardiac Disorders: Yes (HTN , DM ) Hx Psychiatric Problems: No Hx Miscellaneous Medical Probl: Yes (HYPERLIPIDIMIA, dm) Hx Alcohol Use: No Hx Substance Use: No Hx Tobacco Use: No Smoking Status: Never smoker FmHx Brother: of an [facility] at the age of 55. Physical Exam Vitals Vital Signs Date Time Temp Pulse Resp B/P Pulse Ox O2 Delivery O2 Flow Rate FiO2 08/31/17 08:47 56 17 131/67 98 Room Air 08/31/17 07:54 68 16 135/67 Room Air 08/31/17 06:18 98.3 78 16 141/63 100 Room Air 08/31/17 05:48 98.3 71 16 153/71 97 Physical Exam Const: Alert, moderate distress due to pain. Head: Atraumatic. No tenderness over the temporal arteries. Eyes: Normal Conjunctiva. Pupils equal reactive to light, extraocular movements are intact. No nystagmus. ENT: Normal External Ears, Nose and Mouth. TM's nelson, mobile bilaterally. No discharge. No tenderness to percussion over the sinuses. Neck: Full range of motion. Nontender. No meningismus. Carotids 2+ without bruits. Resp: Clear to auscultation bilaterally Cardio: Regular rate and rhythm, no murmurs Abd: Soft, knees, non tender, non distended. Normal bowel sounds Skin: No petechiae or rashes Back: No midline or flank tenderness Ext: No cyanosis, or edema Neur: Awake and alert. Cranial nerves II through XII are grossly intact. Motor and sensory equal bilaterally. DTRs are symmetrical. Psych: Operative, anxious. Result Diagram: 08/31/17 0615 08/31/17 0615 Results 24 hrs Laboratory Tests Test 08/31/17 06:15 08/31/17 06:16 White Blood Count 7.010^3/ul Red Blood Count 5.1210^6/ul Hemoglobin 13.5g/dl Hematocrit 39.5% Mean Corpuscular Volume 77.1fl Mean Corpuscular Hemoglobin 26.4pg Mean Corpuscular Hemoglobin Concent 34.2g/dl Red Cell Distribution Width 13.0% Platelet Count 31521^3/UL Mean Platelet Volume 13.0fl Neutrophils % 55.5% Lymphocytes % 36.5% Monocytes % 6.6% Eosinophils % 0.9% Basophils % 0.4% Nucleated Red Blood Cells % 0.0/100WBC Neutrophils # 3.910^3/ul Lymphocytes # 2.610^3/ul Monocytes # 0.510^3/ul Eosinophils # 0.110^3/ul Basophils # 0.010^3/ul Nucleated Red Blood Cells # 0.010^3/ul Prothrombin Time 10.8Sec Prothrombin Time Ratio 0.8 INR International Normalized Ratio 0.77 Activated Partial Thromboplast Time 24.4Sec Sodium Level 142mmol/L Potassium Level 3.7mmol/L Chloride Level 106mmol/L Carbon Dioxide Level 27mmol/L Anion Gap 13 Blood Urea Nitrogen 11mg/dl Creatinine 0.67mg/dl Glucose Level 178mg/dl Calcium Level 9.6mg/dl Total Bilirubin 0.3mg/dl Direct Bilirubin 0.00mg/dl Indirect Bilirubin 0.3mg/dl Aspartate Amino Transf (AST/SGOT) 27IU/L Alanine Aminotransferase (ALT/SGPT) 31IU/L Alkaline Phosphatase 156IU/L Total Protein 7.5g/dl Albumin 4.0g/dl Globulin 3.50g/dl Albumin/Globulin Ratio 1.14 Thyroid Stimulating Hormone (TSH) 6.250MIU/L Bedside Glucose 167mg/dL Current Medications Medications (Trade) Dose Ordered Sig/Aftab Route PRN Reason Start Time Stop Time Status Last Admin Dose Admin Morphine Sulfate (morphine) 4 mg ONCE STAT IV 08/31/17 07:09 08/31/17 07:10 DC 08/31/17 07:51 Ondansetron HCl (Zofran Inj) 4 mg ONCE STAT IV 08/31/17 07:09 08/31/17 07:10 DC 08/31/17 07:50 LABS: Elevated TSH otherwise unremarkable EKG: TIME: 06: 55. Sinus bradycardia. Ventricular rate 55. Normal DE and QRS. T-wave inversions in leads V3 through V5 to [address] No acute [address] segment elevation or depression. EKG compared to October 23, 2016 and a new T- wave inversion in V3 but otherwise unchanged. EP Interpretation: Abnormal EKG. IMAGING: PROCEDURE: CT Brain without contrast. CLINICAL INDICATION: Dizziness and headache TECHNIQUE: A CT of the brain was performed on a Siemens CT scanner utilizing axial imaging from the skull base through the vertex without IV contrast. Multiplanar reformatted images were made. Images were reviewed on a PACS workstation. The CTDIvol is 43.95 mGy and the DLP is 720.23 mGycm. DICOM images are available. One of the following 3 dose reduction techniques were used during this CT examination: 1) Automated exposure control 2) Adjustment of the mA +/- kV according to patient size or 3) Use of iterative reconstruction technique COMPARISON: None available FINDINGS: There is no intracranial hemorrhage, mass effect, or midline shift. No extra- axial fluid collection is seen. The ventricles and sulci are normal in size and configuration. The density of the brain is normal, and the white white matter differentiation appears well-preserved. The visualized scalp and calvarium are normal. The bilateral orbits are normal. The bilateral paranasal sinuses, mastoid air cells and middle ear cavities are clear. IMPRESSION: 1. No evidence of acute intracranial hemorrhage, infarcts, or acute intracranial pathology. 2. Normal noncontrast head CT. RPTAT: [facility] .Betty Ramos MD, MD Date Time Electronically viewed and signed by .Betty Ramos MD, on 08/31/2017 08: 09 .C/ PROCEDURE: MRI Brain without contrast. CLINICAL INDICATION: Headache and dizziness. TECHNIQUE: An MRI of the brain was performed utilizing the following sequences : Sagittal and axial T1 weighted, axial T2 weighted, axial diffusion weighted with ADC mapping, coronal GRE, and axial FLAIR. COMPARISON: Brain CT 08/31/2017. FINDINGS: No diffusion weighted abnormalities are seen to suggest the presence of acute ischemia or recent infarct. No hypointense signal abnormalities are seen on the GRE images to suggest the presence of blood degradation products. There is no evidence of intracranial hemorrhage, mass effect, or midline shift. No extra- axial fluid collections are seen. The ventricles and sulci are minimally prominent indicative of volume loss. A few small foci of T2 and FLAIR hyperintensity are seen in the deep and subcortical white matter, nonspecific in appearance though perhaps reflective of complicated migraines, early microvascular ischemic disease, sequela from prior traumatic or inflammatory insults. No abnormal intracranial vascular flow void is noted. The visualized paranasal sinuses demonstrate mild scattered mucosal thickening mainly in ethmoid air cells and maxillary sinuses and small probable mucous retention cysts in left sphenoid and bilateral maxillary sinuses. IMPRESSION: 1. No acute intracranial hemorrhage, infarction or mass. 2. A few small foci of white matter signal abnormality, nonspecific in appearance though perhaps reflective of complicated migraines, early microvascular ischemic disease, sequela from prior traumatic or inflammatory insults. 3. Minimal generalized cerebral volume loss. RPTAT: [facility] .Libby Cordon MD, MD Date Time Electronically viewed and signed by .Libby Cordon MD, MD on 08/31/2017 10: 14 .N/ Procedures/MDM DOCUMENTS REVIEWED: ED nurse, prior ED, prior records. Patient was admitted October 2016 for chest pain and was ruled out. According to the notes she was also admitted to all of you in 2008 with similar complaints and had a negative left heart cath. REEXAMINATION/REEVALUATION: Time: 08:30. Headache improved. Time:10:15. Well. Pain resolved. Asymptomatic. Sinus rhythm without ectopy. MEDICAL DECISION MAKIN-year-old female with a history of diabetes, hypertension and hyperlipidemia presents to the ED via rescue ambulance for evaluation of multiple complaints of any headache and dizziness. Non-sudden onset, not maximal headache waxing and waning over the last several weeks improved with analgesics and antiemetics. Extensive workup including CT of the brain and MRI are negative for ischemia, mass, infarct, bleed and aneurysm. No signs of meningitis or encephalitis and lumbar puncture is not indicated. Carotid artery dissection unlikely. Temporal arteritis and sinusitis considered. Likely migraine headache although anxiety and tension headache are also considered. Near syncopal event this morning of uncertain etiology. No chest pain, acute ischemic EKG changes, elevated troponin or other signs of acute coronary syndrome. Cardiac dysrhythmia. Patient observed in the ED for over 3 hours during which time multiple examinations were performed. Dizziness of uncertain etiology but central vertigo was ruled out as imaging studies were unremarkable. Symptoms improved and she is asymptomatic. Supratentorial etiology of her symptoms is not ruled out. Stable for discharge with precautionary instructions and urgent outpatient follow-up as counseled. Counseled patient and family regarding diagnosis, diagnostic results and need for follow-up. Understands that the etiology of her symptoms is not definitively established in urgent outpatient follow-up or return to the ED if symptoms worsen mandatory. Departure Diagnosis: Primary Impression: Headache Headache type: unspecified Headache chronicity pattern: episodic headache Intractability: not intractable Qualified Code: R51 - Nonintractable episodic headache, unspecified headache type Additional Impressions: Dizziness Hypothyroidism Hypothyroidism type: unspecified Qualified Code: E03.9 - Hypothyroidism, unspecified type Diabetes mellitus type 2 in obese Condition: Stable (Improved) REBECCA GARCIA MD Aug 31, 2017 06:54
[2017-08-31] MEDS ORDERED: ONDANSETRON 4 MG INJ IV STA (07:09)
[2017-08-31] MEDS ORDERED: morphine 4 MG/ML VIAL IV STA (07:09)
[2017-08-31 08:09] LABS: BASOPHILS % 0.4 % (0.0-2.0); EOSINOPHILS # 0.1 10^3/ul (0.0-0.5); EOSINOPHILS % 0.9 % (0.0-7.0); HEMATOCRIT 39.5 % (37.0-47.0); HEMOGLOBIN 13.5 g/dl (12.0-16.0); LYMPHOCYTES # 2.6 10^3/ul (0.8-2.9); LYMPHOCYTES % 36.5 % (15.0-51.0); MEAN CORPUSCULAR HEMOGLOBIN 26.4 pg (29.0-33.0); MEAN CORPUSCULAR HGB CONC 34.2 g/dl (32.0-37.0); MEAN CORPUSCULAR VOLUME 77.1 fl (82.0-101.0); MONOCYTE # 0.5 10^3/ul (0.3-0.9); MONOCYTES % 6.6 % (0.0-11.0); NEUTROPHIL # 3.9 10^3/ul (1.6-7.5); NEUTROPHILS % 55.5 % (39.0-77.0); PLATELET COUNT 189 10^3/UL (140-415); RED BLOOD COUNT 5.12 10^6/ul (4.20-5.40)
--- NOTE | 2017-08-31 08:09 | RADRPT ---
PROCEDURE: CT Brain without contrast. CLINICAL INDICATION: Dizziness and headache TECHNIQUE: A CT of the brain was performed on a Siemens CT scanner utilizing axial imaging from th e skull base through the vertex without IV contrast. Multiplanar reformatted images were made. Dona ges were reviewed on a PACS workstation. The CTDIvol is 43.95 mGy and the DLP is 720.23 mGycm. DIC OM images are available. One of the following 3 dose reduction techniques were used during this CT examination: 1) Automated exposure control 2) Adjustment of the mA +/- kV according to patient size or 3) Use of iterative reconstruction technique COMPARISON: None available FINDINGS: There is no intracranial hemorrhage, mass effect, or midline shift. No extra-axial fluid collection is seen. The ventricles and sulci are normal in size and configuration. The density of the brain is normal, and the white white matter differentiation appears well-preserved. The visualized scalp and calvarium are normal. The bilateral orbits are normal. The bilateral parana leah sinuses, mastoid air cells and middle ear cavities are clear. IMPRESSION: 1. No evidence of acute intracranial hemorrhage, infarcts, or acute intracranial pathology. 2. Normal noncontrast head CT. RPTAT: [facility] .Betty Ramos MD, Date Time Electronically viewed and signed by .Betty Ramos MD, MD on 08/31/2017 08:09 .C/
[2017-08-31 08:14] LABS: INR 0.77; PARTIAL THROMBOPLASTIN TIME 24.4 Sec (25.0-35.0); PROTIME 10.8 Sec (11.9-14.9); PT RATIO 0.8
[2017-08-31 08:18] LABS: ALBUMIN/GLOBULIN RATIO 1.14; BILIRUBIN,INDIRECT 0.3 mg/dl (0-1.1); BILIRUBIN,TOTAL 0.3 mg/dl (0.2-1.3); CALCIUM 9.6 mg/dl (8.4-10.2); CREATININE 0.67 mg/dl (0.44-1.00); POTASSIUM 3.7 mmol/L (3.5-5.1); TOTAL PROTEIN 7.5 g/dl (6.1-8.1)
[2017-08-31 08:47] VITALS: BP 131/67; PULSE 56; RESP 17
--- NOTE | 2017-08-31 10:14 | RADRPT ---
PROCEDURE: MRI Brain without contrast. CLINICAL INDICATION: Headache and dizziness. TECHNIQUE: An MRI of the brain was performed utilizing the following sequences: Sagittal and axial T1 weighted, axial T2 weighted, axial diffusion weighted with ADC mapping, coronal GRE, and axial F LAIR. COMPARISON: Brain CT 08/31/2017. FINDINGS: No diffusion weighted abnormalities are seen to suggest the presence of acute ischemia or recent inf arct. No hypointense signal abnormalities are seen on the GRE images to suggest the presence of blo od degradation products. There is no evidence of intracranial hemorrhage, mass effect, or midline s hift. No extra-axial fluid collections are seen. The ventricles and sulci are minimally prominent in dicative of volume loss. A few small foci of T2 and FLAIR hyperintensity are seen in the deep and subcortical white matter, n onspecific in appearance though perhaps reflective of complicated migraines, early microvascular isc hemic disease, sequela from prior traumatic or inflammatory insults. No abnormal intracranial vascular flow void is noted. The visualized paranasal sinuses demonstrate m ild scattered mucosal thickening mainly in ethmoid air cells and maxillary sinuses and small probabl e mucous retention cysts in left sphenoid and bilateral maxillary sinuses. IMPRESSION: 1. No acute intracranial hemorrhage, infarction or mass. 2. A few small foci of white matter signal abnormality, nonspecific in appearance though perhaps re flective of complicated migraines, early microvascular ischemic disease, sequela from prior traumati c or inflammatory insults. 3. Minimal generalized cerebral volume loss. RPTAT: UU .Libby Cordon MD, MD Date Time Electronically viewed and signed by .Libby Cordon MD, MD on 08/31/2017 10:14 .N/
== END 2017-08-31 11:35 | disposition home or self-care (01) ==
LOC: E/R 05:44
DX: E11.9 Type 2 diabetes mellitus without complications (principal); R51 Headache; E03.9 Hypothyroidism, unspecified; E66.9 Obesity, unspecified; I10 Essential (primary) hypertension; Z68.30 Body mass index [BMI] 30.0-30.9, adult; Z79.82 Long term (current) use of aspirin; Z79.4 Long term (current) use of insulin; Z79.84 Long term (current) use of oral hypoglycemic drugs
CPT/HCPCS: 36415; 70450; 70551; 80053; 82962; 84443; 85025; 85610; 85730; 93005; 96374; 96375; 96376; 99285; J2270; J2405

== ENCOUNTER 2017-09-04 15:32 | Inpatient (IN) | payer BC ==
[~2017-09-04] VITALS: Ht 157.5 cm; Wt 78.1 kg
--- NOTE | 2017-09-04 16:18 | ERD ---
ER Documentation Chief Complaint Chief Complaint sent by pmd for eval on slurred speech since sunday HPI This is a 52-year-old female with a past medical history of diabetes who is presenting with concerns of a stroke. The patient reportedly started having symptoms on August 31. Please see ER note from Dr. Dejesus on that day for further detail of that workup. The patient reports having a normal morning on August 31. She showered and got ready for the day. However, prior to leaving the house she started to feel funny. She endorsed a headache and started to have a right-sided facial droop with difficulty speaking. She reportedly almost fell, but she was caught by her at the time. She was evaluated in the emergency department. She did have a significantly elevated TSH, concerning for hypothyroidism. A CT scan and MRI of the head did not reveal any obvious acute ischemia or hemorrhage. The rest of the patient's blood work did not reveal any acute etiologies of her symptoms. She is told to follow-up with her doctor as an outpatient. She did follow-up with her physician, Dr. Sutton, today. Dr. Sutton was concerned that the patient could be having a stroke and referred her to the emergency department for admission and evaluation by neurology. The patient is unable to provide a history herself. She does appear calm, but has trouble answering questions. Per the patient's family, symptoms have not improved. She is able to ambulate but with some difficulty. The patient has also had progressive worsening difficulty speaking as well as progressive decreased sensation and inability to utilize her right hand. Dr. Sutton spoke with the an office neurologist over the last 1 -2 days, who felt that it was appropriate that the patient come to the hospital for an inpatient evaluation. The patient denies feeling sick recently. The patient denies fever or chills. The patient has had no headache or vision changes today. The patient does not endorse neck or back pain. The patient denies lightheadedness or dizziness. The patient has had no chest pain or shortness of breath or trouble breathing. The patient denies nausea or vomiting. The patient denies abdominal pain or changes to bowel movements or urination. ROS All systems reviewed and are negative except as per history of present illness. Medications Home Meds Reported Medications Valacyclovir HCl (Valacyclovir) 1,000 Mg Tablet, 1000 MG PO TID, TAB FOR 7 DAYS, START DATE 09/03/17 09/04/17 Ibuprofen* (Ibuprofen*) 800 Mg Tab, 800 MG PO TID Y for PAIN, TAB 09/04/17 Prednisone* (Prednisone*) 20 Mg Tab, 20 MG PO TID for 17 Days, #50 TAB START DATE 09/03/17 09/04/17 Cyclobenzaprine Hcl* (Cyclobenzaprine Hcl*) 10 Mg Tablet, 10 MG PO DAILY, #60 TAB 09/04/17 Simvastatin* (Zocor*) 10 Mg Tablet, 10 MG PO QHS, #30 TAB 09/04/17 Metformin* (Glucophage*) 1,000 Mg Tablet, 1000 MG PO BID, #60 TAB 10/23/16 Losartan-Hydrochlorothiazide (Losartan-HCTZ) 100-25 Mg Tab, 1 TAB PO DAILY, TAB 10/23/16 Discontinued Reported Medications Insulin Isophan/Regular (Humulin 70/30) 100 Units/Ml Susp, 26 UNITS SC BID, EA 10/23/16 Discontinued Scripts Benzonatate* (Tessalon Perle*) 100 Mg Capsule, 100 MG PO Q8H Y for COUGH, #30 CAP Prov:MALENA RICHMOND PA-C 11/28/16 Azithromycin* (Zithromax*) 250 Mg Tablet, 250 MG PO .MONICACK DIRECTED, #6 TAB TAKE 500 MG (2 TABS) THE FIRST DAY THEN 250 MG (1 TAB) DAYS 2-5 Prov:MALENA RICHMOND PA-C 11/28/16 Ibuprofen* (Motrin*) 600 Mg Tab, 600 MG PO Q6, #30 TAB Prov:MALENA RICHMOND PA-C 11/28/16 Ibuprofen* (Ibuprofen*) 200 Mg Capsule, 200 MG PO Q6 Y for PAIN LEVEL 6-10, #20 CAP Prov:CORNELIO SELF MD 10/24/16 Cyclobenzaprine Hcl* (Cyclobenzaprine Hcl*) 5 Mg Tablet, 5 MG PO Q8H Y for MUSCLE SPASMS, #20 TAB Prov:CORNELIO SELF MD 10/24/16 Aspirin (Aspirin) 81 Mg Chew, 81 MG PO DAILY, #30 TAB Prov:CORNELIO SELF MD 10/24/16 Allergies Allergies: Coded Allergies: No Known Allergy (Unverified , 09/04/17) PMhx/Soc History of Surgery: Yes (gallstone, appendix) Anesthesia Reaction: No Hx Neurological Disorder: No Hx Respiratory Disorders: No Hx Cardiac Disorders: Yes (HTN , DM ) Hx Psychiatric Problems: No Hx Miscellaneous Medical Probl: Yes (HYPERLIPIDIMIA, dm) Hx Alcohol Use: No Hx Substance Use: No Hx Tobacco Use: No FmHx Family History: No coronary disease, No diabetes Physical Exam Vitals Vital Signs Date Time Temp Pulse Resp B/P Pulse Ox O2 Delivery O2 Flow Rate FiO2 09/04/17 17:25 98.0 64 18 156/66 99 Room Air 09/04/17 15:42 98.1 67 18 165/82 99 Physical Exam Const: No apparent distress, well-developed, well-nourished Head: Normocephalic, Atraumatic Eyes: Normal Conjunctiva. Extraocular movements intact. Pupils equal, round and reactive to light ENT: Normal External Ears, Nose and Mouth. Neck: Full range of motion. No meningismus. Resp: Clear to auscultation bilaterally, No wheezes, rales or rhonchi Cardio: Regular rate and rhythm. No murmurs, rubs or gallops Abd: Soft, non tender, non distended. Normal bowel sounds Skin: No petechiae or rashes Back: No midline tenderness. No CVA tenderness Ext: No cyanosis, or edema Neur: Awake and alert, oriented 4. Cranial nerves intact. No facial droop. Normal strength, sensation and coordination. Psych: Normal Mood and Affect Result Diagram: 09/04/17 1630 09/04/17 1630 Results 24 hrs Laboratory Tests Test 09/04/17 16:30 09/04/17 17:21 White Blood Count 11.910^3/ul Red Blood Count 5.3110^6/ul Hemoglobin 13.8g/dl Hematocrit 40.9% Mean Corpuscular Volume 77.0fl Mean Corpuscular Hemoglobin 26.0pg Mean Corpuscular Hemoglobin Concent 33.7g/dl Red Cell Distribution Width 13.2% Platelet Count 17464^3/UL Mean Platelet Volume 11.1fl Neutrophils % 84.3% Lymphocytes % 12.1% Monocytes % 2.6% Eosinophils % 0.1% Basophils % 0.2% Nucleated Red Blood Cells % 0.0/100WBC Neutrophils # 10.010^3/ul Lymphocytes # 1.410^3/ul Monocytes # 0.310^3/ul Eosinophils # 0.010^3/ul Basophils # 0.010^3/ul Nucleated Red Blood Cells # 0.010^3/ul Prothrombin Time 11.5Sec Prothrombin Time Ratio 0.9 INR International Normalized Ratio 0.83 Activated Partial Thromboplast Time 25.7Sec Sodium Level 139mmol/L Potassium Level 4.3mmol/L Chloride Level 99mmol/L Carbon Dioxide Level 23mmol/L Anion Gap 21 Blood Urea Nitrogen 18mg/dl Creatinine 0.78mg/dl Glucose Level 325mg/dl Calcium Level 9.8mg/dl Troponin I 0.018ng/ml Urine Color STRAW Urine Clarity CLEAR Urine pH 5.0 Urine Specific [place] 1.011 Urine Ketones NEGATIVEmg/dL Urine Nitrite NEGATIVEmg/dL Urine Bilirubin NEGATIVEmg/dL Urine Urobilinogen NEGATIVEmg/dL Urine Leukocyte Esterase 1+Gabrielle/ul Urine Microscopic RBC 2/HPF Urine Microscopic WBC 6/HPF Urine Bacteria FEW/HPF Urine Hemoglobin NEGATIVEmg/dL Urine Glucose 3+mg/dL Urine Total Protein NEGATIVEmg/dl Procedures/MDM MDM The patient's presentation warrants further investigation. The patient does have signs and symptoms of a possible stroke. Unfortunately, she is outside the window for TPA. I will complete a repeat stroke workup in the emergency department, we will evaluate for ischemia versus hemorrhage. The patient does not endorse a headache presently. I doubt complex migraine. She does not have signs or symptoms at this time of temporal arteritis. LABS The patient's blood work was obtained and reviewed. The patient's CBC shows leukocytosis and left shift. However, the patient is afebrile and does not appear systemically ill. I do not suspect a systemic infection. The patient is not anemic today. The patient's platelet count is unremarkable. The patient's BMP shows no signs of metabolic or electrolyte emergencies. The patient has unremarkable renal function testing. The patient's troponin is negative. The patient's INR is actually low, rising the possibility of hypercoagulable state. A TSH and free T4 were sent off. The TSH from August 31, 2017 was elevated at 6.25. EKG EKG read by me: Rate/Rhythm: Regular rate and rhythm at a rate of 68 bpm Intervals: Normal [place]: Normal Impression: Nonspecific repolarization abnormalities including T-wave flattening but no evidence of acute ischemia or arrhythmia IMAGING CT Head FINDINGS: There is no intracranial hemorrhage, mass effect, or midline shift. No extra-axial fluid collection is seen. The ventricles and sulci are normal in size and configuration. The density of the brain is normal, and the white white matter differentiation appears well-preserved. The visualized paranasal sinuses and osseous structures are grossly unremarkable. IMPRESSION: No acute intracranial process identified. No significant change since 08/31/2017. Electronically viewed and signed by .Oneil Garay MD, on 09/04/2017 16:51 CXR FINDINGS: The heart is normal in size. The pulmonary vessels are normal in caliber. There are calcified left hilar lymph nodes and calcified granuloma in the left mid lung. Lungs otherwise clear. The costophrenic angles are sharp. The visualized bony thorax is unremarkable. IMPRESSION: No acute cardiopulmonary disease. Old granulomatous disease Electronically viewed and signed by Physician Dimitrios on 09/04/2017 16: 50 TREATMENT/DISPOSITION The patient will be given full dose aspirin in the emergency department. I do not see evidence of obvious ischemia or hemorrhage on the CT scan. However, based on her symptoms, she does require inpatient admission for further evaluation of a possible stroke. An MRI and CT scan were performed on the , and they were reviewed by myself. She does have early microvascular ischemic changes, but there is no obvious evidence of ischemia on the MRI from 4 days ago. The patient may require an MRA of the head and neck while in the hospital. An echocardiogram may also be beneficial. The patient does have an elevated TSH, which increases the possibility of hypothyroidism. This will need to be further evaluated as well. At this time, I feel that the patient requires admission for further evaluation and management. The patient will be admitted to panel in accordance with the patient's insurance. The patient was accepted by Dr. Andreina Powell at 5:20 PM on September 04, 2017. The patient's blood pressure was elevated at greater than 120/80 while in the emergency department. The patient was otherwise stable with no evidence of hypertensive urgency or emergency or end organ damage, but this may be further evaluated in the hospital. I have discussed with the patient the risks of hypertension. The patient was educated on concerning symptoms including chest pain, shortness of breath, headache, blurred vision, confusion, nausea, vomiting or LOC. Disclaimer: Inadvertent spelling and grammatical errors are likely due to EHR/ dictation software use and do not reflect on the overall quality of patient care. Note that the electronic time recorded on this note does not necessarily reflect the actual time of the patient encounter. Departure Diagnosis: Primary Impression: CVA (cerebral vascular accident) CVA mechanism: unspecified Qualified Code: I63.9 - Cerebrovascular accident (CVA), unspecified mechanism Additional Impressions: Confusion Slurred speech Aphasia Facial droop Condition: PRASHANTH Santos MD Sep 04, 2017 16:18
[2017-09-04 16:46] LABS: BASOPHILS % 0.2 % (0.0-2.0); EOSINOPHILS % 0.1 % (0.0-7.0); HEMATOCRIT 40.9 % (37.0-47.0); HEMOGLOBIN 13.8 g/dl (12.0-16.0); LYMPHOCYTES # 1.4 10^3/ul (0.8-2.9); LYMPHOCYTES % 12.1 % (15.0-51.0); MEAN CORPUSCULAR HGB CONC 33.7 g/dl (32.0-37.0); MEAN PLATELET VOLUME 11.1 fl (7.4-10.4); MONOCYTE # 0.3 10^3/ul (0.3-0.9); MONOCYTES % 2.6 % (0.0-11.0); NEUTROPHILS % 84.3 % (39.0-77.0); PLATELET COUNT 288 10^3/UL (140-415); RED BLOOD COUNT 5.31 10^6/ul (4.20-5.40); RED CELL DISTRIBUTION WIDTH 13.2 % (11.5-14.5); WHITE BLOOD COUNT 11.9 10^3/ul (4.8-10.8)
--- NOTE | 2017-09-04 16:50 | RADRPT ---
PROCEDURE: CT Brain without contrast. CLINICAL INDICATION: Stroke symptoms. TECHNIQUE: A CT of the brain was performed on a GE [employer] 64-slice CT scanner utilizing axial imaging from the skull base through the vertex without IV contrast. Multiplanar reformatted images were made. Images were reviewed on a PACS workstation. The CTDIvol is 41.44 mGy and the DLP is 720 .23 mGycm. One or the following dose reduction techniques were used: -Automated exposure control. -Adjustment of the mA and/or KV according to patient's size. -Use of iterative reconstruction technique. DICOM images are available. COMPARISON: CT of the brain from 08/31/2017. FINDINGS: There is no intracranial hemorrhage, mass effect, or midline shift. No extra-axial fluid collection is seen. The ventricles and sulci are normal in size and configuration. The density of the brain is normal, and the white white matter differentiation appears well-preserved. The visualized paranasal sinuses and osseous structures are grossly unremarkable. IMPRESSION: 1. No acute intracranial process identified. No significant change since 08/31/2017. RPTAT: [facility] Physician Dimitrios Date Time Electronically viewed and signed by Physician Dimitrios on 09/04/2017 16:50 /
--- NOTE | 2017-09-04 16:52 | RADRPT ---
PROCEDURE: Chest x-ray CLINICAL INDICATION: Stroke TECHNIQUE: Chest single view COMPARISON: 10/23/2016 FINDINGS: The heart is normal in size. The pulmonary vessels are normal in caliber. There are calcified left hilar lymph nodes and calcified granuloma in the left mid lung. Lungs otherwise clear. The costophr enic angles are sharp. The visualized bony thorax is unremarkable. IMPRESSION: No acute cardiopulmonary disease. Old granulomatous disease RPTAT: HH .Oneil Garay MD, MD Date Time Electronically viewed and signed by .Oneil Garay MD, on 09/04/2017 16:51 .W/
[2017-09-04 17:08] LABS: INR 0.83; PARTIAL THROMBOPLASTIN TIME 25.7 Sec (25.0-35.0); PROTIME 11.5 Sec (11.9-14.9); PT RATIO 0.9
[2017-09-04] MEDS ORDERED: SIMV10TA PO (17:16)
[2017-09-04] MEDS ORDERED: CYCL-319 PO (17:18)
[2017-09-04 17:20] LABS: CALCIUM 9.8 mg/dl (8.4-10.2); CREATININE 0.78 mg/dl (0.44-1.00); POTASSIUM 4.3 mmol/L (3.5-5.1)
[2017-09-04] MEDS ORDERED: IBUP800T25 PO (17:20)
[2017-09-04] MEDS ORDERED: PRED20TA PO (17:20)
[2017-09-04] MEDS ORDERED: VALA1000 PO (17:23)
[2017-09-04 17:25] VITALS: TEMP 98
[2017-09-04 17:32] LABS: TROPONIN-I 0.018 ng/ml (0.00-0.12)
[2017-09-04 17:38] LABS: ADD UMIC YES; UR ASCORBIC ACID NEGATIVE (NEGATIVE); UR BACTERIA FEW /HPF (NONE SEEN); UR BILIRUBIN (Dip) NEGATIVE (NEGATIVE); UR BLOOD (Dip) NEGATIVE (NEGATIVE); UR CLARITY CLEAR (CLEAR); UR COLOR STRAW (YELLOW); UR GLUCOSE (Dip) 3+ mg/dL (NEGATIVE); UR KETONES (Dip) NEGATIVE (NEGATIVE); UR LEUKOCYTE ESTERASE (Dip) 1+ Leu/ul (NEGATIVE); UR NITRITE (Dip) NEGATIVE (NEGATIVE); UR RBC 2 /HPF (0-5); UR SPECIFIC GRAVITY (Dip) 1.011 (1.003-1.030); UR TOTAL PROTEIN (Dip) NEGATIVE (NEGATIVE); UR UROBILINOGEN (Dip) NEGATIVE (NEGATIVE)
[2017-09-04] MEDS ORDERED: ASPIRIN 81 MG TAB PO ONE (18:00)
[2017-09-04] MEDS ORDERED: ONDANSETRON 4 MG INJ IV PRN ×2 (18:00→20:00)
[2017-09-04] MEDS ORDERED: ACETAMINOPHEN 325 MG TAB PO PRN ×2 (18:00→20:00)
[2017-09-04 18:21] LABS: BARBITURATES Negative (NEGATIVE); BENZODIAZEPINES Negative (NEGATIVE); CANNABINOIDS Negative (NEGATIVE); COCAINE Negative (NEGATIVE); OPIATES Negative (NEGATIVE)
--- NOTE | 2017-09-04 19:39 | HP ---
Date/Time of Note Date/Time of Note DATE: 09/04/17 TIME: 19:29 Assessment/Plan VTE Prophylaxis VTE Prophylaxis Intervention: LMWH Lines/Catheters IV [facility] Saline Lock Assessment/Plan Chief Complaint/Hosp Course 1. Aphasia cause unknown at this time Patient has no focal neurological deficits in the extremities, may be psych related MRI from 4 days ago was negative for CVA but did show a few small foci of white matter signal abnormality, nonspecific in appearance though perhaps reflective of complicated migraines, early microvascular ischemic disease, sequela from prior traumatic or inflammatory insults Repeat CT head is negative Have obtained neurology consultation Aspirin and statin PT and ST eval 2. Diabetes Continue home insulin regimen 3. Hypertension Resume home meds 4. Leukocytosis secondary to UTI Rocephin Check urine culture Prophylaxis: Lovenox Problems: HPI/ROS Admit Date/Time Admit Date/Time Hx of Present Illness Patient is a 52-year-old female with a past medical history of insulin- dependent diabetes, hypertension and obesity. Patient presents with 4 days of aphasia. Patient was in the ED 4 days ago where she endorsed a headache and started to have a right-sided facial droop with difficulty speaking. She reportedly almost fell, but she was caught by her at the time. She was evaluated in the emergency department and CT scan and MRI of the head did not reveal any obvious acute ischemia or hemorrhage. Remaining workup was negative patient was told to follow-up with her PCP Dr. Sutton which she did today and there was concern that the patient could be having a stroke and referred her to the emergency department for admission and evaluation by neurology. Patient is aphasic and unable to provide any history, history is provided by who is bedside. Per the patient's symptoms have not improved, she is able to ambulate but with some difficulty. Patient also has progressive decreased sensation and inability to utilize her right hand. Patient's primary care physician spoke with the an office neurologist who felt that it was appropriate that the patient come to the hospital for an inpatient evaluation. Patient currently denies any headache and repeat CT head is negative. ROS Subjective hx not possible: pt non-verbal PMH/Family/Social Past Medical History Medical History: diabetes, hypertension Family History Significant Family History: no pertinent family hx Social History Alcohol Use: none Smoking Status: Unknown if ever smoked Drug Use: none Exam/Review of Systems Vital Signs Vitals Vital Signs Date Time Temp Pulse Resp B/P Pulse Ox O2 Delivery O2 Flow Rate FiO2 09/04/17 17:25 98.0 64 18 156/66 99 Room Air Exam Constitutional: non-verbal Respiratory: clear to auscultation Cardiovascular: regular rate and rhythm Gastrointestinal: soft, No distended Musculoskeletal: nl extremities to inspection Neurological: No focal weakness, No nl speech Labs Result Diagram: 09/04/17 1630 09/04/17 1630 NAE BARBA Sep 04, 2017 19:39
[2017-09-04] MEDS ORDERED: NACL 0.9% 3 ML SYG IV SCH (20:00)
[2017-09-04] MEDS ORDERED: HYDROCODONE/APAP (5/325) TAB PO PRN (20:00)
[2017-09-04] MEDS ORDERED: DOCUSATE SODIUM 100 MG CAP PO PRN (20:00)
[2017-09-04] MEDS ORDERED: morphine 2 MG INJ IV PRN (20:00)
[2017-09-04 20:49] VITALS: PULSE 60
[2017-09-04 20:50] VITALS: Ht 157.5 cm; Wt 78.1 kg
[2017-09-04 21:13] VITALS: BP 135/72; RESP 20
--- NOTE | 2017-09-04 21:25 | RADRPT ---
PROCEDURE: US Carotids. CLINICAL INDICATION: CVA. TECHNIQUE: Multiple sonographic of the carotid arteries were obtained utilizing white scale imaging . Color and Doppler imaging was performed. The images were reviewed on a PACS workstation. COMPARISON: No prior studies are available for comparison. FINDINGS: Location:RightLeft CCA42.6 cm/sec60.4 cm/sec Prox ICA56.1 cm/sec42.7 cm/sec Mid ICA53.9 cm/sec35.7 cm/sec Dist ICA71.1 cm/sec55.0 cm/sec RYP293.9 cm/sec56.2 cm/sec ICA/CCA:1.7 0.9 Antegrade flow is seen within the vertebral arteries bilaterally. Mild plaque is seen within the car otid system bilaterally. However, no evidence for hemodynamically significant stenosis or occlusion is identified. IMPRESSION: 1. No hemodynamically significant stenosis in the cervical carotid arteries. 2. Antegrade flow in both vertebral arteries. Note: Ultrasound velocity criteria are extrapolated from diameter data as defined by the Society of Radiologists in Ultrasound Consensus Conference Radiology 2003; 229;340-346. This study indirectly r eferences the measurement of the distal ICA diameter as the denominator for stenosis measurement. RPTAT: HTAR .Drew Mcguire MD, Date Time Electronically viewed and signed by .Drew Mcguire MD, on 09/04/2017 21:25 .R/
[2017-09-04] MEDS: ATORVASTATIN 80 MG TAB PO SCH (21:30)
[2017-09-04] MEDS ORDERED: GLUCAGON 1 MG INJ IM PRN (21:30)
[2017-09-04] MEDS ORDERED: GLUCOSE GEL 15 GRAM TUBE PO PRN ×2 (21:30)
[2017-09-04] MEDS ORDERED: GLUCOSE GEL 15 GRAM TUBE BUCCAL PRN (21:30)
[2017-09-04] MEDS ORDERED: DEXTROSE 50% 50 ML SYRINGE IV PRN ×2 (21:30)
[2017-09-04] MEDS: INSULIN GLARGINE [LANtus] 3 ML PEN SC SCH (23:24)
[2017-09-04] MEDS: SOD CHLORIDE 0.45% 1,000 ML IV SCH (23:28)
[2017-09-05] VITALS (13 sets, daily range): BP systolic 116–155; BP diastolic 55–86; PULSE 40–63; RESP 16–20
[2017-09-05] MEDS: INSULIN ASPART [NOVOLOG] 3 ML PEN SC SCH ×6 (00:50→20:56)
[2017-09-05] MEDS: ACCU-CHEK XX SCH (02:00)
[2017-09-05 10:11] LABS: BASOPHILS % 0.4 % (0.0-2.0); EOSINOPHILS # 0.1 10^3/ul (0.0-0.5); EOSINOPHILS % 0.8 % (0.0-7.0); HEMATOCRIT 35.9 % (37.0-47.0); HEMOGLOBIN 12.3 g/dl (12.0-16.0); LYMPHOCYTES % 42.2 % (15.0-51.0); MEAN CORPUSCULAR HEMOGLOBIN 26.5 pg (29.0-33.0); MEAN CORPUSCULAR HGB CONC 34.3 g/dl (32.0-37.0); MEAN CORPUSCULAR VOLUME 77.4 fl (82.0-101.0); MEAN PLATELET VOLUME 11.4 fl (7.4-10.4); MONOCYTE # 0.7 10^3/ul (0.3-0.9); NEUTROPHIL # 4.7 10^3/ul (1.6-7.5); NEUTROPHILS % 49.2 % (39.0-77.0); PLATELET COUNT 254 10^3/UL (140-415); RED BLOOD COUNT 4.64 10^6/ul (4.20-5.40); RED CELL DISTRIBUTION WIDTH 13.6 % (11.5-14.5); WHITE BLOOD COUNT 9.5 10^3/ul (4.8-10.8)
--- NOTE | 2017-09-05 10:46 | CONS ---
Date/Time of Note Date/Time of Note DATE: 09/05/17 TIME: 10:39 Assessment/Plan Assessment/Plan Chief Complaint/Hosp Course 52 yo female w hx of HTN, HLD, DM obesity p/w left facial droop and right sided weakness over the past week, fall at home a week ago with worsening symptoms. Recommendations: obtain MRI Brain, MRA Head/Neck without contrast requires more optimal control of diabetes HBA1C 9.5% check FLP maintain SBP less than 140 ECHO w bubble study weight loss and dietary modification d/w family DVT ppx PT/OT/Speech Problems: Consultation Date/Type/Reason Admit Date/Time 09/04/17 Date of Consultation: Sep 05, 2017 Type of Consultation: Neurology Reason for Consultation CVA evaluation Referring Provider: NAE BARBA Hx of Present Illness 52 yo female from [facility] with history of HTN, HLD, DM, obesity presents with a fall in the shower over one week ago followed by aphasia and right sided weakness. She was evaluated in the ER with CTH and MRI which showed no obvious acute ischemic injury/hemorrhag and was sent home. She was seen by her PCP, sent back to the ER for concern of stroke. Repeat Head CT is negative. Per hx obtained from niece at bedside her symptoms have worsened in the past week. Subjective hx not possible: pt non-verbal Past Medical History Medical History: diabetes, hypertension Social History Alcohol Use: none Smoking Status: Never smoker Drug Use: none Exam/Review of Systems Vital Signs Vitals Vital Signs Date Time Temp Pulse Resp B/P Pulse Ox O2 Delivery O2 Flow Rate FiO2 09/05/17 08:29 50 09/05/17 07:45 97.6 17 139/73 98 09/04/17 17:25 Room Air Exam awake alert obese attentive and tracks examiner non-verbal follows all commands no receptive aphasia no neglect CN: JE, blink to threat, left facial droop palate upgoing uvula midline scm/trap intact tongue m/l Motor: right arm 3/5 drift left arm and leg 5/5, right leg 5/5 Sensory intact Coordination unable to perform on right, left no ataxia Results Result Diagram: 09/05/17 0928 09/04/17 1630 Results 24 hrs Laboratory Tests Test 09/04/17 16:30 09/04/17 17:21 09/04/17 21:49 09/05/17 02:23 White Blood Count 11.9 #H Red Blood Count 5.31 Hemoglobin 13.8 Hematocrit 40.9 Mean Corpuscular Volume 77.0 L Mean Corpuscular Hemoglobin 26.0 L Mean Corpuscular Hemoglobin Concent 33.7 Red Cell Distribution Width 13.2 Platelet Count 288 # Mean Platelet Volume 11.1 H Neutrophils % 84.3 H Lymphocytes % 12.1 L Monocytes % 2.6 Eosinophils % 0.1 Basophils % 0.2 Nucleated Red Blood Cells % 0.0 Neutrophils # 10.0 H Lymphocytes # 1.4 Monocytes # 0.3 Eosinophils # 0.0 Basophils # 0.0 Nucleated Red Blood Cells # 0.0 Prothrombin Time 11.5 L Prothrombin Time Ratio 0.9 INR International Normalized Ratio 0.83 Activated Partial Thromboplast Time 25.7 Sodium Level 139 Potassium Level 4.3 Chloride Level 99 Carbon Dioxide Level 23 Anion Gap 21 H Blood Urea Nitrogen 18 Creatinine 0.78 Glucose Level 325 H Hemoglobin A1c 9.5 H Calcium Level 9.8 Troponin I 0.018 Thyroid Stimulating Hormone (TSH) 2.460 Free Thyroxine 1.13 Urine Color STRAW Urine Clarity CLEAR Urine pH 5.0 Urine Specific [place] 1.011 Urine Ketones NEGATIVE Urine Nitrite NEGATIVE Urine Bilirubin NEGATIVE Urine Urobilinogen NEGATIVE Urine Leukocyte Esterase 1+ H Urine Microscopic RBC 2 Urine Microscopic WBC 6 H Urine Bacteria FEW A Urine Hemoglobin NEGATIVE Urine Glucose 3+ H Urine Total Protein NEGATIVE Urine Opiates Screen Negative Urine Barbiturates Negative Urine Amphetamines Screen Negative Urine Benzodiazepines Screen Negative Urine Cocaine Screen Negative Urine Cannabinoids Negative Bedside Glucose 249 H 200 Test 09/05/17 05:26 09/05/17 09:28 Bedside Glucose 140 White Blood Count 9.5 # Red Blood Count 4.64 Hemoglobin 12.3 Hematocrit 35.9 L Mean Corpuscular Volume 77.4 L Mean Corpuscular Hemoglobin 26.5 L Mean Corpuscular Hemoglobin Concent 34.3 Red Cell Distribution Width 13.6 Platelet Count 254 Mean Platelet Volume 11.4 H Neutrophils % 49.2 Lymphocytes % 42.2 Monocytes % 7.0 Eosinophils % 0.8 Basophils % 0.4 Nucleated Red Blood Cells % 0.0 Neutrophils # 4.7 Lymphocytes # 4.0 H Monocytes # 0.7 Eosinophils # 0.1 Basophils # 0.0 Nucleated Red Blood Cells # 0.0 Medications Medications Current Medications Sodium Chloride (1/2 NS) 1,000 ml @ 100 mls/hr Q10H IV Last administered on t 23:28; Admin Dose 100 MLS/HR; Start 09/04/17 at 23:00 Ondansetron HCl (Zofran Inj) 4 mg Q6H PRN IV NAUSEA AND/OR VOMITING; Start at 20:00 Acetaminophen (Tylenol Tab) 650 mg Q6H PRN PO PAIN LEVEL 1-3 OR FEVER; Start 09/04/17 at 20:00 Acetaminophen/ Hydrocodone Bitart ([place] (5/325)) 1 tab Q6H PRN PO MODERATE PAIN LEVEL 4-6; Start 09/04/17 at 20:00 Morphine Sulfate (morphine) 2 mg Q4H PRN IV SEVERE PAIN LEVEL 7-10; Start at 20:00 Docusate Sodium (Colace) 100 mg Q12H PRN PO CONSTIPATION; Start 09/04/17 at 20 :00 Enoxaparin Sodium (Lovenox) 40 mg DAILY SC ; Start 09/05/17 at 09:00 Prednisone (Prednisone) 20 mg TID PO ; Start 09/05/17 at 09:00 Losartan Potassium (Cozaar) 100 mg DAILY PO ; Start 09/05/17 at 09:00 Diagnostic Test (Pha) (Accu-Chek) 1 ea 02 XX ; Start 09/05/17 at 02:00 Insulin Aspart (Novolog Insulin Pen) NOVOLOG *MILD* ALGORI... Q4 SC Last administered on 09/05/17t 00:50; Admin Dose 3 UNIT; Start 09/05/17 at 01:00 Miscellaneous Information 1 ea NOTE XX ; Start 09/04/17 at 21:30 Glucose (Glutose) 15 gm Q15M PRN PO DECREASED GLUCOSE; Start 09/04/17 at 21:30 Glucose (Glutose) 22.5 gm Q15M PRN PO DECREASED GLUCOSE; Start 09/04/17 at 21: 30 Dextrose (D50w Syringe) 25 ml Q15M PRN IV DECREASED GLUCOSE; Start 09/04/17 at 21:30 Dextrose (D50w Syringe) 50 ml Q15M PRN IV DECREASED GLUCOSE; Start 09/04/17 at 21:30 Glucagon (Glucagen) 1 mg Q15M PRN IM DECREASED GLUCOSE; Start 09/04/17 at 21: 30 Glucose (Glutose) 15 gm Q15M PRN BUCCAL DECREASED GLUCOSE; Start 09/04/17 at 21:30 Atorvastatin Calcium (Lipitor) 80 mg HS PO ; Start 09/04/17 at 21:30 Insulin Glargine (Lantus) 11 unit DAILY@20 SC Last administered on 09/04/17t 23:24; Admin Dose 11 UNIT; Start 09/04/17 at 22:30 Hydrochlorothiazide (Hydrochlorothiazide) 25 mg DAILY PO ; Start 09/05/17 at 09 :00 HAL PERERA MD Sep 05, 2017 10:46
[2017-09-05] MEDS: SOD CHLORIDE 0.45% 1,000 ML IV SCH ×2 (10:47→17:24)
[2017-09-05] MEDS: HYDROCHLOROTHIAZIDE 25 MG TAB PO SCH (10:49)
[2017-09-05] MEDS: LOSARTAN 50 MG TAB PO SCH (10:50)
[2017-09-05] MEDS: predniSONE 20 MG TAB PO SCH ×3 (10:50→20:49)
[2017-09-05] MEDS: ENOXAPARIN 40 MG/0.4 ML SYG SC SCH (10:52)
[2017-09-05 10:53] LABS: CALCIUM 9.3 mg/dl (8.4-10.2); CHOL/HDL RATIO 4.5 RATIO; CREATININE 0.76 mg/dl (0.44-1.00); PHOSPHORUS 4.2 mg/dl (2.5-4.9); POTASSIUM 3.8 mmol/L (3.5-5.1)
--- NOTE | 2017-09-05 14:35 | RADRPT ---
Echocardiogram Report Patient Name: PHILLY MALHOTRA Gender: Female Date: 1965 Study Date: 05-Sep-2017 Tunnel Kiln Repairer: Brenden Jarvis [facility] Location: 5565 Ref. Physician: NAE BARBA Quality: Technically Difficult Study Procedures: Transthoracic echocardiogram with complete 2D, M-Mode, and doppler examination. Indications: Cerebrovascular Accident. 2D/M Mode Doppler Measurement Value Normal Ranges Measurement Value Normal Ranges LVIDd 2D 4.4 3.5 - 5.6 cm AV Peak Grant 1.4 m/sec LVIDs 2D 2.2 2.1 - 4.1 cm AV Peak PG 7.4 mmHg LVPWd 2D 0.9 0.6 - 1.1 cm LVOT Peak Grant 1.1 m/sec IVSd 2D 0.8 0.6 - 1.1 cm LVOT Peak PG 4.5 mmHg AoR Diam 2D 2.8 2.0 - 3.7 cm MV E Peak Grant 0.9 m/sec EDV 2D 88.5 cm3 MV A Peak Grant 1.1 m/sec ESV 2D 10.2 cm3 MV E/A 0.8 LA Dimen 2D 2.6 2.3 - 4.0 cm MV Decel Time 183 msec MV Decel [place] 5 MV E/A 0.8 TR Peak Grant 2.8 m/sec TR Peak PG 30.8 mmHg RVSP 34.0 mmHg Findings Left Ventricle: Normal left ventricular systolic function. Normal left ventricular cavity size. Normal left ventricular wall thickness. Ejection fraction is visually estimated at 60 %. Tissue Doppler/Mitral Doppler indices are consistent with impaired relaxation (Stage I diastolic dysfunction). Right Ventricle: Normal right ventricular size. Normal right ventricular systolic function. Left Atrium: The left atrium is normal in size. Right Atrium: The right atrium is normal in size. Mitral Valve: Normal appearance and function of the mitral valve with trace physiologic regurgitation. Aortic Valve: Normal appearance of the aortic valve. No significant aortic stenosis or insufficiency. Tricuspid Valve: Normal appearance and function of the tricuspid valve with trace physiologic regurgitation. Estimated peak PA systolic pressure 34 mmHg. Pulmonic Valve: Pulmonic valve not well visualized. Pericardium: Normal pericardium with no significant pericardial effusion. Aorta: Normal aortic root. IVC: Normal size and normal respiratory collapse consistent with normal right atrial pressure. Conclusions 1.Normal left ventricular systolic function. Normal left ventricular cavity size. Normal left ventricular wall thickness. Ejection fraction is visually estimated at 60 %. Tissue Doppler/Mitral Doppler indices are consistent with impaired relaxation (Stage I diastolic dysfunction). 2.Normal right ventricular size. Normal right ventricular systolic function. 3.The left atrium is normal in size. 4.The right atrium is normal in size. 5.No significant valvular stenosis or regurgitation seen. 6.Normal pericardium with no significant pericardial effusion. Electronically Signed By: Lon Faust 05-Sep-2017 14:34:57 -0800 Patient Name: PHILLY MALHOTRA Study Date: 05-Sep-[id number]
--- NOTE | 2017-09-05 14:48 | RADRPT ---
PROCEDURE: MRI Brain without contrast. CLINICAL INDICATION: Neurological deficit. TECHNIQUE: An MRI of the brain was performed utilizing the following sequences: Sagittal and axial T1 weighted, axial T2 weighted, axial diffusion weighted with ADC mapping, coronal GRE, and axial F LAIR. COMPARISON: Brain CT 09/04/2017. FINDINGS: There are multiple foci of restricted diffusion involving left frontal and parietal lobes as well as left coronal radiata and left lentiform nucleus consistent with acute/recent infarcts in the left M CA distribution. No hypointense signal abnormalities are seen on the GRE images to suggest the presence of blood degr adation products. There is no evidence of intracranial hemorrhage, mass effect, or midline shift. N o extra-axial fluid collections are seen. The ventricles and sulci are minimally enlarged indicative of volume loss. There are additional mild scattered foci of T2 FLAIR hyperintensity in the periventricular, deep, an d subcortical white matter, which are nonspecific in etiology but likely reflect chronic small vesse l ischemic changes. No abnormal intracranial vascular flow void is noted. The visualized paranasal sinuses are grossly clear. IMPRESSION: 1. Acute/recent infarcts involving left frontal and parietal lobes as well as left coronal radiata and left lentiform nucleus in the left MCA distribution. 2. Mild chronic small vessel ischemic changes. 3. Minimal generalized cerebral volume loss. A call report was made and above findings were discussed and acknowledged by CORNELIUS Contreras on 09/05/2017 2:45 PM to relay to Ilana Alston. RPTAT: HH .Libby Cordon MD, MD Date Time Electronically viewed and signed by .Libby Cordon MD, MD on 09/05/2017 14:48 .N/
--- NOTE | 2017-09-05 14:51 | RADRPT ---
PROCEDURE: MRA Neck without contrast. CLINICAL INDICATION: Stroke, focal neurologic deficit TECHNIQUE: 2D and 3-D [id number] MR Angiography of the neck was performed. No intravenous cont rast was administered. 3-D re-formations were performed. COMPARISON: Carotid ultrasound 09/04/2017 FINDINGS: The right common carotid artery is normally patent. The carotid bulb appears normal. The right int ernal carotid artery appears unremarkable, without focal stenosis or dilatation. The left common carotid artery is normally patent. The carotid bulb appears normal. The left inter nal carotid artery appears unremarkable, without focal stenosis or dilatation. The bilateral vertebral arteries appear unremarkable, without definite focal stenosis or dilatation. There is limited evaluation of the vertebral artery origins, with moderate signal loss at the righ t vertebral artery origin that may be artifactual.. IMPRESSION: 1. Normal appearing patency of the bilateral common and internal carotid arteries, without significa nt stenosis or occlusion. 2. Likely normal patency of the bilateral cervical vertebral arteries. There is moderate focal volu me loss of the right vertebral artery origin which may be artifactual. RPTAT: DD .Edenilson Fountain MD, MD Date Time Electronically viewed and signed by .Edenilson Fountain MD, MD on 09/05/2017 14:51 .T/
--- NOTE | 2017-09-05 14:57 | RADRPT ---
PROCEDURE: MRA Brain. CLINICAL INDICATION: Neurological deficit. TECHNIQUE: An MRA of the brain was performed without intravenous contrast utilizing the following sequences: 3-D [id number] images through the intracranial vasculature with post processed wilver l intensity projections in multiple planes. COMPARISON: Concurrent MRI of the brain. FINDINGS: Mild narrowing of cavernous, and supraclinoid internal carotid artery segments is noted. The petrous internal carotid artery segments are patent without evidence of significant stenosis. Th e A1 segment of right LUZ is hypoplastic. The A1 segment of left LUZ is patent and gives off bilate ral A2 segments. There is moderate to marked focal stenosis of proximal M1 segment of left middle cerebral artery. Th ere is also narrowing and attenuation of distal branches of the left middle cerebral artery. Otherwi se the proximal anterior cerebral arteries and right middle cerebral artery are patent without signi ficant stenosis. There is predominant origin of right posterior cerebral artery with hypoplastic right P1 segm ent. The intradural vertebral arteries, basilar artery and posterior cerebral arteries are patent without evidence of significant focal stenosis. No aneurysms are identified. IMPRESSION: 1. Moderate to marked focal stenosis of proximal M1 segment of left middle cerebral artery. Also na rrowing and attenuation of distal branches of the left middle cerebral artery. 2. Mild narrowing of cavernous, and supraclinoid internal carotid artery segments 3. Otherwise no significant stenosis in the remainder of the major intracranial arteries. RPTAT: HFN .Libby Cordon MD, MD Date Time Electronically viewed and signed by .Libby Cordon MD, MD on 09/05/2017 14:56 .N/
--- NOTE | 2017-09-05 15:57 | PN ---
Date/Time of Note Date/Time of Note DATE: 09/05/17 TIME: 15:49 Assessment/Plan VTE Prophylaxis VTE Prophylaxis Intervention: LMWH Lines/Catheters IV Catheter Type (from [facility] [place] Urinary Cath still in place: No Assessment/Plan Chief Complaint/Hosp Course 1. 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 Also narrowing and attenuation of distal branches of the left middle cerebral artery Neurology consultation appreciated Aspirin and statin PT and ST eval 2. Diabetes-uncontrolled A1c at 9.5 Continue current regimen as sugars are currently stable environmental educator and dietary consultation 3. Hypertension Continue home meds 4. Leukocytosis secondary to UTI Rocephin Check urine culture Prophylaxis: Lovenox Problems: Subjective 24 Hr Interval Summary Subjective hx not possible: pt non-verbal Exam/Review of Systems Vital Signs Vitals Vital Signs Date Time Temp Pulse Resp B/P Pulse Ox O2 Delivery O2 Flow Rate FiO2 09/05/17 12:15 98.9 54 18 155/86 97 09/04/17 17:25 Room Air Exam Constitutional: non-verbal Respiratory: clear to auscultation Cardiovascular: regular rate and rhythm Gastrointestinal: soft, No distended Musculoskeletal: nl extremities to inspection Results Result Diagram: 09/05/1728 09/05/17 0928 Results 24 hrs Laboratory Tests Test 09/04/17 16:30 09/04/17 17:21 09/04/17 21:49 09/05/17 02:23 White Blood Count 11.9 #H Red Blood Count 5.31 Hemoglobin 13.8 Hematocrit 40.9 Mean Corpuscular Volume 77.0 L Mean Corpuscular Hemoglobin 26.0 L Mean Corpuscular Hemoglobin Concent 33.7 Red Cell Distribution Width 13.2 Platelet Count 288 # Mean Platelet Volume 11.1 H Neutrophils % 84.3 H Lymphocytes % 12.1 L Monocytes % 2.6 Eosinophils % 0.1 Basophils % 0.2 Nucleated Red Blood Cells % 0.0 Neutrophils # 10.0 H Lymphocytes # 1.4 Monocytes # 0.3 Eosinophils # 0.0 Basophils # 0.0 Nucleated Red Blood Cells # 0.0 Prothrombin Time 11.5 L Prothrombin Time Ratio 0.9 INR International Normalized Ratio 0.83 Activated Partial Thromboplast Time 25.7 Sodium Level 139 Potassium Level 4.3 Chloride Level 99 Carbon Dioxide Level 23 Anion Gap 21 H Blood Urea Nitrogen 18 Creatinine 0.78 Glucose Level 325 H Hemoglobin A1c 9.5 H Calcium Level 9.8 Troponin I 0.018 Thyroid Stimulating Hormone (TSH) 2.460 Free Thyroxine 1.13 Urine Color STRAW Urine Clarity CLEAR Urine pH 5.0 Urine Specific [place] 1.011 Urine Ketones NEGATIVE Urine Nitrite NEGATIVE Urine Bilirubin NEGATIVE Urine Urobilinogen NEGATIVE Urine Leukocyte Esterase 1+ H Urine Microscopic RBC 2 Urine Microscopic WBC 6 H Urine Bacteria FEW A Urine Hemoglobin NEGATIVE Urine Glucose 3+ H Urine Total Protein NEGATIVE Urine Opiates Screen Negative Urine Barbiturates Negative Urine Amphetamines Screen Negative Urine Benzodiazepines Screen Negative Urine Cocaine Screen Negative Urine Cannabinoids Negative Bedside Glucose 249 H 200 Test 09/05/17 05:26 09/05/17 09:28 09/05/17 10:51 09/05/17 12:25 Bedside Glucose 140 132 121 White Blood Count 9.5 # Red Blood Count 4.64 Hemoglobin 12.3 Hematocrit 35.9 L Mean Corpuscular Volume 77.4 L Mean Corpuscular Hemoglobin 26.5 L Mean Corpuscular Hemoglobin Concent 34.3 Red Cell Distribution Width 13.6 Platelet Count 254 Mean Platelet Volume 11.4 H Neutrophils % 49.2 Lymphocytes % 42.2 Monocytes % 7.0 Eosinophils % 0.8 Basophils % 0.4 Nucleated Red Blood Cells % 0.0 Neutrophils # 4.7 Lymphocytes # 4.0 H Monocytes # 0.7 Eosinophils # 0.1 Basophils # 0.0 Nucleated Red Blood Cells # 0.0 Sodium Level 141 Potassium Level 3.8 Chloride Level 103 Carbon Dioxide Level 31 Anion Gap 11 # Blood Urea Nitrogen 13 Creatinine 0.76 Glucose Level 116 # Calcium Level 9.3 Phosphorus Level 4.2 Magnesium Level 2.0 Triglycerides Level 210 H Cholesterol Level 194 LDL Cholesterol, Calculated 109 HDL Cholesterol 43 Cholesterol/HDL Ratio 4.5 Medications Medications Current Medications Sodium Chloride (1/2 NS) 1,000 ml @ 100 mls/hr Q10H IV Last administered on t 10:47; Admin Dose 100 MLS/HR; Start 09/04/17 at 23:00 Ondansetron HCl (Zofran Inj) 4 mg Q6H PRN IV NAUSEA AND/OR VOMITING; Start at 20:00 Acetaminophen (Tylenol Tab) 650 mg Q6H PRN PO PAIN LEVEL 1-3 OR FEVER; Start 09/04/17 at 20:00 Acetaminophen/ Hydrocodone Bitart ([place] (5/325)) 1 tab Q6H PRN PO MODERATE PAIN LEVEL 4-6; Start 09/04/17 at 20:00 Morphine Sulfate (morphine) 2 mg Q4H PRN IV SEVERE PAIN LEVEL 7-10 Last administered on 09/05/17 15:30; Admin Dose 2 MG; Start 09/04/17 at 20:00 Docusate Sodium (Colace) 100 mg Q12H PRN PO CONSTIPATION; Start 09/04/17 at 20 :00 Enoxaparin Sodium (Lovenox) 40 mg DAILY SC Last administered on 09/05/17 10: 52; Admin Dose 40 MG; Start 09/05/17 at 09:00 Prednisone (Prednisone) 20 mg TID PO Last administered on 09/05/17 13:48; Admin Dose 20 MG; Start 09/05/17 at 09:00 Losartan Potassium (Cozaar) 100 mg DAILY PO Last administered on 09/05/17 10: 50; Admin Dose 100 MG; Start 09/05/17 at 09:00 Diagnostic Test (Pha) (Accu-Chek) 1 ea 02 XX ; Start 09/05/17 at 02:00 Insulin Aspart (Novolog Insulin Pen) NOVOLOG *MILD* ALGORI... Q4 SC Last administered on 09/05/17 00:50; Admin Dose 3 UNIT; Start 09/05/17 at 01:00 Miscellaneous Information 1 ea NOTE XX ; Start 09/04/17 at 21:30 Glucose (Glutose) 15 gm Q15M PRN PO DECREASED GLUCOSE; Start 09/04/17 at 21:30 Glucose (Glutose) 22.5 gm Q15M PRN PO DECREASED GLUCOSE; Start 09/04/17 at 21: 30 Dextrose (D50w Syringe) 25 ml Q15M PRN IV DECREASED GLUCOSE; Start 09/04/17 at 21:30 Dextrose (D50w Syringe) 50 ml Q15M PRN IV DECREASED GLUCOSE; Start 09/04/17 at 21:30 Glucagon (Glucagen) 1 mg Q15M PRN IM DECREASED GLUCOSE; Start 09/04/17 at 21: 30 Glucose (Glutose) 15 gm Q15M PRN BUCCAL DECREASED GLUCOSE; Start 09/04/17 at 21:30 Atorvastatin Calcium (Lipitor) 80 mg HS PO ; Start 09/04/17 at 21:30 Insulin Glargine (Lantus) 11 unit DAILY@20 SC Last administered on 09/04/17 23:24; Admin Dose 11 UNIT; Start 09/04/17 at 22:30 Hydrochlorothiazide (Hydrochlorothiazide) 25 mg DAILY PO Last administered on 09/05/17 10:49; Admin Dose 25 MG; Start 09/05/17 at 09:00 NAE BARBA Sep 05, 2017 15:57
[2017-09-05] MEDS: ASPIRIN (EC) 325 MG TAB PO SCH (17:18)
[2017-09-05] MEDS ORDERED: INSULIN GLARGINE [LANtus] 3 ML PEN SC SCH (20:00)
[2017-09-05] MEDS: ATORVASTATIN 80 MG TAB PO SCH ×2 (20:50→20:57)
[2017-09-05] MEDS: INSULIN GLARGINE [LANtus] 3 ML PEN SC SCH (20:56)
[2017-09-05] MEDS ORDERED: ATORVASTATIN 80 MG TAB PO SCH (21:00)
[2017-09-06] VITALS (12 sets, daily range): BP systolic 111–146; BP diastolic 57–70; PULSE 52–76; RESP 16–19
[2017-09-06] MEDS: INSULIN ASPART [NOVOLOG] 3 ML PEN SC SCH ×7 (01:33→21:04)
[2017-09-06] MEDS: ACCU-CHEK XX SCH (01:38)
[2017-09-06] MEDS: SOD CHLORIDE 0.45% 1,000 ML IV SCH (05:29)
[2017-09-06] MEDS: LOSARTAN 50 MG TAB PO SCH (08:24)
[2017-09-06] MEDS: ASPIRIN (EC) 325 MG TAB PO SCH (08:24)
[2017-09-06] MEDS: predniSONE 20 MG TAB PO SCH ×3 (08:24→20:46)
[2017-09-06] MEDS: HYDROCHLOROTHIAZIDE 25 MG TAB PO SCH (08:24)
[2017-09-06] MEDS: ENOXAPARIN 40 MG/0.4 ML SYG SC SCH (08:25)
[2017-09-06] MEDS ORDERED: INSULIN ASPART [NOVOLOG] 3 ML PEN SC SCH ×2 (12:00)
--- NOTE | 2017-09-06 14:34 | PN ---
Date/Time of Note Date/Time of Note DATE: 09/06/17 TIME: 14:30 Assessment/Plan VTE Prophylaxis VTE Prophylaxis Intervention: LMWH Lines/Catheters IV Catheter Type (from [facility]): [facility] Urinary Cath still in place: No Assessment/Plan Chief Complaint/Hosp Course 1. 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 Also narrowing and attenuation of distal branches of the left middle cerebral artery Neurology consultation appreciated Patient has a family history of CVA, both mother and brother with strokes, have obtained hematology consultation for hypercoagulable workup Aspirin and statin PT and speech therapy evaluation appreciated, patient is ambulating with PT 2. Diabetes-uncontrolled A1c at 9.5 Sugars elevated, have increased insulin doses outreach educator and dietary consultation 3. Hypertension-stable Continue home meds 4. Leukocytosis secondary to UTI Rocephin Follow-up on urine culture Prophylaxis: Lovenox Discharge planning: Patient will need rehab placement, discussed with oil field caser Problems: Subjective 24 Hr Interval Summary Free Text/Dictation Difficulty speaking Exam/Review of Systems Vital Signs Vitals Vital Signs Date Time Temp Pulse Resp B/P Pulse Ox O2 Delivery O2 Flow Rate FiO2 09/06/17 12:20 60 09/06/17 11:58 98.1 19 135/67 96 09/04/17 17:25 Room Air Intake and Output 09/05/17 09/05/17 09/06/17 15:00 23:00 07:00 Intake Total 950 ml 1700 ml Balance 950 ml 1700 ml Exam Constitutional: alert Respiratory: clear to auscultation Cardiovascular: regular rate and rhythm Gastrointestinal: soft, No distended Musculoskeletal: nl extremities to inspection Results Result Diagram: 09/05/1728 09/05/17 0928 Results 24 hrs Laboratory Tests Test 09/05/17 17:08 09/05/17 20:47 09/06/17 01:26 09/06/17 08:21 Bedside Glucose 300 H 219 229 H 166 Test 09/06/17 12:56 Bedside Glucose 286 H Medications Medications Current Medications Ondansetron HCl (Zofran Inj) 4 mg Q6H PRN IV NAUSEA AND/OR VOMITING; Start at 20:00 Acetaminophen (Tylenol Tab) 650 mg Q6H PRN PO PAIN LEVEL 1-3 OR FEVER; Start 09/04/17 at 20:00 Acetaminophen/ Hydrocodone Bitart ([place] (5/325)) 1 tab Q6H PRN PO MODERATE PAIN LEVEL 4-6; Start 09/04/17 at 20:00 Morphine Sulfate (morphine) 2 mg Q4H PRN IV SEVERE PAIN LEVEL 7-10 Last administered on 09/05/17 15:30; Admin Dose 2 MG; Start 09/04/17 at 20:00 Docusate Sodium (Colace) 100 mg Q12H PRN PO CONSTIPATION; Start 09/04/17 at 20 :00 Enoxaparin Sodium (Lovenox) 40 mg DAILY SC Last administered on 09/06/17 08: 25; Admin Dose 40 MG; Start 09/05/17 at 09:00 Prednisone (Prednisone) 20 mg TID PO Last administered on 09/06/17 12:58; Admin Dose 20 MG; Start 09/05/17 at 09:00 Losartan Potassium (Cozaar) 100 mg DAILY PO Last administered on 09/06/17 08: 24; Admin Dose 100 MG; Start 09/05/17 at 09:00 Diagnostic Test (Pha) (Accu-Chek) 1 ea 02 XX Last administered on 09/06/17 01 :38; Admin Dose 1 EA; Start 09/05/17 at 02:00 Miscellaneous Information 1 ea NOTE XX ; Start 09/04/17 at 21:30 Glucose (Glutose) 15 gm Q15M PRN PO DECREASED GLUCOSE; Start 09/04/17 at 21:30 Glucose (Glutose) 22.5 gm Q15M PRN PO DECREASED GLUCOSE; Start 09/04/17 at 21: 30 Dextrose (D50w Syringe) 25 ml Q15M PRN IV DECREASED GLUCOSE; Start 09/04/17 at 21:30 Dextrose (D50w Syringe) 50 ml Q15M PRN IV DECREASED GLUCOSE; Start 09/04/17 at 21:30 Glucagon (Glucagen) 1 mg Q15M PRN IM DECREASED GLUCOSE; Start 09/04/17 at 21: 30 Glucose (Glutose) 15 gm Q15M PRN BUCCAL DECREASED GLUCOSE; Start 09/04/17 at 21:30 Hydrochlorothiazide (Hydrochlorothiazide) 25 mg DAILY PO Last administered on 09/06/17 08:24; Admin Dose 25 MG; Start 09/05/17 at 09:00 Aspirin (Ecotrin) 325 mg DAILY PO Last administered on 09/06/17 08:24; Admin Dose 325 MG; Start 09/05/17 at 16:00 Atorvastatin Calcium (Lipitor) 80 mg HS PO Last administered on 09/05/17 20: 50; Admin Dose 80 MG; Start 09/05/17 at 21:00 Insulin Glargine (Lantus) 16 unit DAILY@20 SC ; Start 09/06/17 at 20:00 NAE BARBA Sep 06, 2017 14:34
[2017-09-06] MEDS ORDERED: INSULIN GLARGINE [LANtus] 3 ML PEN SC SCH (20:00)
--- NOTE | 2017-09-06 20:07 | CONS ---
Date/Time of Note Date/Time of Note DATE: 09/06/17 TIME: 20:02 Consult Date/Type/Reason Admit Date/Time Sep 04, 2017 at 17:43 Initial Consult Date 09/05/17 Type of Consultation: Neurology Ordering Provider: NAE BARBA Subjective no acute events. Objective Vital Signs Date Time Temp Pulse Resp B/P Pulse Ox O2 Delivery O2 Flow Rate FiO2 09/06/17 17:22 111/57 09/06/17 16:40 76 09/06/17 16:14 98.3 19 94 09/04/17 17:25 Room Air Intake and Output 09/05/17 09/05/17 09/06/17 15:00 23:00 07:00 Intake Total 950 ml 1700 ml Balance 950 ml 1700 ml Results/Medications Result Diagram: 09/05/1792709/05/17927 Results 24 hrs Laboratory Tests Test 09/05/17 20:47 09/06/17 01:26 09/06/17 08:21 09/06/17 12:56 Bedside Glucose 219 229 H 166 286 H Test 09/06/17 17:23 Bedside Glucose 366 H Medications Current Medications Ondansetron HCl (Zofran Inj) 4 mg Q6H PRN IV NAUSEA AND/OR VOMITING; Start at 20:00 Acetaminophen (Tylenol Tab) 650 mg Q6H PRN PO PAIN LEVEL 1-3 OR FEVER; Start 09/04/17 at 20:00 Acetaminophen/ Hydrocodone Bitart ([place] (5/325)) 1 tab Q6H PRN PO MODERATE PAIN LEVEL 4-6; Start 09/04/17 at 20:00 Morphine Sulfate (morphine) 2 mg Q4H PRN IV SEVERE PAIN LEVEL 7-10 Last administered on 09/05/17 15:30; Admin Dose 2 MG; Start 09/04/17 at 20:00 Docusate Sodium (Colace) 100 mg Q12H PRN PO CONSTIPATION; Start 09/04/17 at 20 :00 Enoxaparin Sodium (Lovenox) 40 mg DAILY SC Last administered on 09/06/17 08: 25; Admin Dose 40 MG; Start 09/05/17 at 09:00 Prednisone (Prednisone) 20 mg TID PO Last administered on 09/06/17 12:58; Admin Dose 20 MG; Start 09/05/17 at 09:00 Losartan Potassium (Cozaar) 100 mg DAILY PO Last administered on 09/06/17 08: 24; Admin Dose 100 MG; Start 09/05/17 at 09:00 Diagnostic Test (Pha) (Accu-Chek) 1 ea 02 XX Last administered on 09/06/17 01 :38; Admin Dose 1 EA; Start 09/05/17 at 02:00 Miscellaneous Information 1 ea NOTE XX ; Start 09/04/17 at 21:30 Glucose (Glutose) 15 gm Q15M PRN PO DECREASED GLUCOSE; Start 09/04/17 at 21:30 Glucose (Glutose) 22.5 gm Q15M PRN PO DECREASED GLUCOSE; Start 09/04/17 at 21: 30 Dextrose (D50w Syringe) 25 ml Q15M PRN IV DECREASED GLUCOSE; Start 09/04/17 at 21:30 Dextrose (D50w Syringe) 50 ml Q15M PRN IV DECREASED GLUCOSE; Start 09/04/17 at 21:30 Glucagon (Glucagen) 1 mg Q15M PRN IM DECREASED GLUCOSE; Start 09/04/17 at 21: 30 Glucose (Glutose) 15 gm Q15M PRN BUCCAL DECREASED GLUCOSE; Start 09/04/17 at 21:30 Hydrochlorothiazide (Hydrochlorothiazide) 25 mg DAILY PO Last administered on 09/06/17 08:24; Admin Dose 25 MG; Start 09/05/17 at 09:00 Aspirin (Ecotrin) 325 mg DAILY PO Last administered on 09/06/17 08:24; Admin Dose 325 MG; Start 09/05/17 at 16:00 Atorvastatin Calcium (Lipitor) 80 mg HS PO Last administered on 09/05/17 20: 50; Admin Dose 80 MG; Start 09/05/17 at 21:00 Insulin Glargine (Lantus) 16 unit DAILY@20 SC ; Start 09/06/17 at 20:00 Diagnostic Test (Pha) (Accu-Chek) 1 ea XX ; Start 09/07/17 at 02:00 Assessment/Plan Chief Complaint/Hosp Course Awake, follows commands, able to repeat, word finding difficulties, right hemianopia, mild right sided facial weakness, rest of CN OK, Perrl 4-2 mm, RUE, RLE 3/5, decreased perception of LT on the right, coordination ok on the left. A/P Acute ischemic CVA in territory of left MCA, Continue PT/speech therapy. Consider acure rehab. Keep normotensive, euglycemic, cont asa, statin. Problems: JEAN CARLOS SMITH MD Sep 06, 2017 20:07
[2017-09-06] MEDS: ATORVASTATIN 80 MG TAB PO SCH (20:46)
[2017-09-06] MEDS: INSULIN GLARGINE [LANtus] 3 ML PEN SC SCH (21:04)
[2017-09-07] VITALS (12 sets, daily range): BP systolic 124–145; BP diastolic 56–80; PULSE 52–60; RESP 18–19
[2017-09-07] MEDS: ACCU-CHEK XX SCH ×2 (01:17)
[2017-09-07] MEDS: LOSARTAN 50 MG TAB PO SCH (08:30)
[2017-09-07] MEDS: predniSONE 20 MG TAB PO SCH ×3 (08:30→21:00)
[2017-09-07] MEDS: HYDROCHLOROTHIAZIDE 25 MG TAB PO SCH (08:31)
[2017-09-07] MEDS: INSULIN ASPART [NOVOLOG] 3 ML PEN SC SCH ×7 (08:33→21:00)
[2017-09-07] MEDS: ENOXAPARIN 40 MG/0.4 ML SYG SC SCH (08:34)
[2017-09-07] MEDS: ASPIRIN (EC) 325 MG TAB PO SCH (09:00)
[2017-09-07] MEDS: SOD CHLORIDE 0.45% 1,000 ML IV SCH ×2 (12:28→22:44)
--- NOTE | 2017-09-07 15:23 | CONS ---
Date/Time of Note Date/Time of Note DATE: 09/07/17 TIME: 15:23 Assessment/Plan Assessment/Plan Chief Complaint/Hosp Course 52 yo with #Left MCA stroke - with Moderate to marked focal stenosis of proximal M1 segment of left middle cerebral artery #Hypertension #Diabetes - HB A1c > 9 Recs: -given patient's young age it is indicated to rule out an underlying hypercoagulable disorder as a contributing factor to her severe CVA -pt currently is not on Coumadin or heparin and so a complete hypercoagulable workup can be performed -will check for Factor 5 Leiden and Prothrombin Gene Mutation -check for Protein C or S deficiency -r/o hyperhomocysteinemia -r/o antiphospholipid syndrome. anti-cardiolipin antibodies, Beta2 glycoprotein antibodies and Lupus anticoagulant was ordered -rule out anti-thrombin III deficiency -continue ASA per neurology -continue strict management of patient's hypertension, diabetes and hyperlipidemia with current meds Above labs will take up to 2 weeks to result. can follow up the results as an out patient in my clinic Problems: Consultation Date/Type/Reason Admit Date/Time Sep 04, 2017 at 17:43 Date of Consultation: Sep 06, 2017 Type of Consultation: hematology Reason for Consultation coagulopathy Referring Provider: NAE BARBA Hx of Present Illness 52-year-old female with multiple medical problems including insulin-dependent diabetes, hypertension and obesity. Pt initially presented to [facility] on 09/04 with 4 days of aphasia, with right-sided facial droop. 09/05 MRA brain was done which demonstrated Moderate to marked focal stenosis of proximal M1 segment of left middle cerebral artery. Also narrowing and attenuation of distal branches of the left middle cerebral artery. 09/05 MRI Brain reveals Acute/recent infarcts involving left frontal and parietal lobes as well as left coronal radiata and left lentiform nucleus in the left MCA distribution. Given the CVA in a young female we have been consulted for work up of an underlying hypercoagulable disorder Subjective hx not possible: pt non-verbal Eyes: no complaints ENT: dysphagia Respiratory: no complaints Cardiovascular: no complaints Gastrointestinal: no complaints Genitourinary: no complaints Musculoskeletal: no complaints Neurologic: focal-weakness Past Medical History Medical History: diabetes, hypertension Family History Significant Family History: no pertinent family hx Social History Alcohol Use: none Smoking Status: Never smoker Drug Use: none Exam/Review of Systems Vital Signs Vitals Vital Signs Date Time Temp Pulse Resp B/P Pulse Ox O2 Delivery O2 Flow Rate FiO2 09/07/17 12:30 52 09/07/17 11:58 98.0 19 144/71 96 09/04/17 17:25 Room Air Intake and Output 09/06/17 09/06/17 09/07/17 15:00 23:00 07:00 Intake Total 500 ml 800 ml Balance 500 ml 800 ml Exam Constitutional: alert, oriented Psych: no complaints Head: normocephalic Eyes: nl conjunctiva ENMT: other (facial droop) Neck: supple Respiratory: clear to auscultation Cardiovascular: regular rate and rhythm Gastrointestinal: soft Musculoskeletal: nl extremities to inspection Results Result Diagram: 09/05/1792709/05/17927 Results 24 hrs Laboratory Tests Test 09/06/17 17:23 09/06/17 20:38 09/07/17 01:18 09/07/17 08:23 Bedside Glucose 366 H 227 H 171 184 Test 09/07/17 11:31 Bedside Glucose 121 Medications Medications Current Medications Ondansetron HCl (Zofran Inj) 4 mg Q6H PRN IV NAUSEA AND/OR VOMITING; Start at 20:00 Acetaminophen (Tylenol Tab) 650 mg Q6H PRN PO PAIN LEVEL 1-3 OR FEVER; Start 09/04/17 at 20:00 Acetaminophen/ Hydrocodone Bitart ([place] (5/325)) 1 tab Q6H PRN PO MODERATE PAIN LEVEL 4-6; Start 09/04/17 at 20:00 Morphine Sulfate (morphine) 2 mg Q4H PRN IV SEVERE PAIN LEVEL 7-10 Last administered on 09/05/17 15:30; Admin Dose 2 MG; Start 09/04/17 at 20:00 Docusate Sodium (Colace) 100 mg Q12H PRN PO CONSTIPATION; Start 09/04/17 at 20 :00 Enoxaparin Sodium (Lovenox) 40 mg DAILY SC Last administered on 09/07/17 08: 34; Admin Dose 40 MG; Start 09/05/17 at 09:00 Prednisone (Prednisone) 20 mg TID PO Last administered on 09/07/17 08:30; Admin Dose 20 MG; Start 09/05/17 at 09:00 Losartan Potassium (Cozaar) 100 mg DAILY PO Last administered on 09/07/17 08: 30; Admin Dose 100 MG; Start 09/05/17 at 09:00 Diagnostic Test (Pha) (Accu-Chek) 1 ea 02 XX Last administered on 09/07/17 01 :17; Admin Dose 1 EA; Start 09/05/17 at 02:00 Miscellaneous Information 1 ea NOTE XX ; Start 09/04/17 at 21:30 Glucose (Glutose) 15 gm Q15M PRN PO DECREASED GLUCOSE; Start 09/04/17 at 21:30 Glucose (Glutose) 22.5 gm Q15M PRN PO DECREASED GLUCOSE; Start 09/04/17 at 21: 30 Dextrose (D50w Syringe) 25 ml Q15M PRN IV DECREASED GLUCOSE; Start 09/04/17 at 21:30 Dextrose (D50w Syringe) 50 ml Q15M PRN IV DECREASED GLUCOSE; Start 09/04/17 at 21:30 Glucagon (Glucagen) 1 mg Q15M PRN IM DECREASED GLUCOSE; Start 09/04/17 at 21: 30 Glucose (Glutose) 15 gm Q15M PRN BUCCAL DECREASED GLUCOSE; Start 09/04/17 at 21:30 Hydrochlorothiazide (Hydrochlorothiazide) 25 mg DAILY PO Last administered on 09/07/17 08:31; Admin Dose 25 MG; Start 09/05/17 at 09:00 Aspirin (Ecotrin) 325 mg DAILY PO Last administered on 09/06/17 08:24; Admin Dose 325 MG; Start 09/05/17 at 16:00 Atorvastatin Calcium (Lipitor) 80 mg HS PO Last administered on 09/06/17 20: 46; Admin Dose 80 MG; Start 09/05/17 at 21:00 Insulin Glargine (Lantus) 16 unit DAILY@20 SC Last administered on 09/06/17 21:04; Admin Dose 16 UNIT; Start 09/06/17 at 20:00 Diagnostic Test (Pha) 1 ea 1 ea 02 XX Last administered on 09/07/17 01:17; Admin Dose 1 EA; Start 09/07/17 at 02:00 Sodium Chloride (1/2 NS) 1,000 ml @ 100 mls/hr Q10H IV Last administered on 12:28; Admin Dose 100 MLS/HR; Start 09/07/17 at 12:00 YURI MARY M.D. Sep 07, 2017 15:23
--- NOTE | 2017-09-07 17:26 | PN ---
Date/Time of Note Date/Time of Note DATE: 09/07/17 TIME: 17:20 Assessment/Plan VTE Prophylaxis VTE Prophylaxis Intervention: LMWH Lines/Catheters IV [facility] Saline Lock Urinary Cath still in place: No Assessment/Plan Chief Complaint/Hosp Course 1. Aphasia and right-sided weakness secondary to left MCA CVA Patient has progression of her CVA, prior patient only had aphasia and as of today has total paralysis of the right upper extremity and lower extremity MRI brain shows acute/recent infarcts involving left frontal and parietal lobes as well as left coronal radiata and left lentiform nucleus in the left MCA distribution Brain MRA shows moderate to marked focal stenosis of proximal M1 segment of left middle cerebral artery. Also narrowing and attenuation of distal branches of the left middle cerebral artery Occlusion in the left MCA is not amenable to surgical intervention, MRA of the neck shows no occlusion Neurology consultation appreciated Patient has a family history of CVA, both mother and brother with strokes, hematology consultation for hypercoagulable workup Aspirin and statin PT and speech therapy evaluation appreciated, patient is now an aspiration risk and is n.p.o., patient is also now unable to ambulate due to right-sided paralysis May need PEG tube next week if continues to be a high aspiration risk 2. Diabetes-uncontrolled A1c at 9.5 Sugars now improved continue basal insulin and hold mealtime as patient is n.p.o. tobacco prevention health educator and dietary consultation 3. Hypertension-stable Continue home meds 4. Leukocytosis secondary to UTI Rocephin Follow-up on urine culture Prophylaxis: Lovenox Discharge planning: Patient will ultimately need rehab placement, discussed with case manager specialist Problems: Subjective 24 Hr Interval Summary Subjective hx not possible: pt non-verbal Exam/Review of Systems Vital Signs Vitals Vital Signs Date Time Temp Pulse Resp B/P Pulse Ox O2 Delivery O2 Flow Rate FiO2 09/07/17 16:19 52 09/07/17 15:44 98.2 19 124/63 96 09/04/17 17:25 Room Air Intake and Output 09/06/17 09/06/17 09/07/17 15:00 23:00 07:00 Intake Total 500 ml 800 ml Balance 500 ml 800 ml Exam Constitutional: non-verbal Respiratory: clear to auscultation Cardiovascular: regular rate and rhythm Gastrointestinal: soft, No distended Musculoskeletal: nl extremities to inspection Results Result Diagram: 09/05/17 0928 09/05/17 0928 Results 24 hrs Laboratory Tests Test 09/06/17 17:23 09/06/17 20:38 09/07/17 01:18 09/07/17 08:23 Bedside Glucose 366 H 227 H 171 184 Test 09/07/17 11:31 09/07/17 17:14 Bedside Glucose 121 164 Medications Medications Current Medications Ondansetron HCl (Zofran Inj) 4 mg Q6H PRN IV NAUSEA AND/OR VOMITING; Start at 20:00 Acetaminophen (Tylenol Tab) 650 mg Q6H PRN PO PAIN LEVEL 1-3 OR FEVER; Start 09/04/17 at 20:00 Acetaminophen/ Hydrocodone Bitart ([place] (5/325)) 1 tab Q6H PRN PO MODERATE PAIN LEVEL 4-6; Start 09/04/17 at 20:00 Morphine Sulfate (morphine) 2 mg Q4H PRN IV SEVERE PAIN LEVEL 7-10 Last administered on 09/05/17 15:30; Admin Dose 2 MG; Start 09/04/17 at 20:00 Docusate Sodium (Colace) 100 mg Q12H PRN PO CONSTIPATION; Start 09/04/17 at 20 :00 Enoxaparin Sodium (Lovenox) 40 mg DAILY SC Last administered on 09/07/17 08: 34; Admin Dose 40 MG; Start 09/05/17 at 09:00 Prednisone (Prednisone) 20 mg TID PO Last administered on 09/07/17 08:30; Admin Dose 20 MG; Start 09/05/17 at 09:00 Losartan Potassium (Cozaar) 100 mg DAILY PO Last administered on 09/07/17 08: 30; Admin Dose 100 MG; Start 09/05/17 at 09:00 Diagnostic Test (Pha) (Accu-Chek) 1 ea 02 XX Last administered on 09/07/17 01 :17; Admin Dose 1 EA; Start 09/05/17 at 02:00 Miscellaneous Information 1 ea NOTE XX ; Start 09/04/17 at 21:30 Glucose (Glutose) 15 gm Q15M PRN PO DECREASED GLUCOSE; Start 09/04/17 at 21:30 Glucose (Glutose) 22.5 gm Q15M PRN PO DECREASED GLUCOSE; Start 09/04/17 at 21: 30 Dextrose (D50w Syringe) 25 ml Q15M PRN IV DECREASED GLUCOSE; Start 09/04/17 at 21:30 Dextrose (D50w Syringe) 50 ml Q15M PRN IV DECREASED GLUCOSE; Start 09/04/17 at 21:30 Glucagon (Glucagen) 1 mg Q15M PRN IM DECREASED GLUCOSE; Start 09/04/17 at 21: 30 Glucose (Glutose) 15 gm Q15M PRN BUCCAL DECREASED GLUCOSE; Start 09/04/17 at 21:30 Hydrochlorothiazide (Hydrochlorothiazide) 25 mg DAILY PO Last administered on 09/07/17 08:31; Admin Dose 25 MG; Start 09/05/17 at 09:00 Aspirin (Ecotrin) 325 mg DAILY PO Last administered on 09/06/17 08:24; Admin Dose 325 MG; Start 09/05/17 at 16:00 Atorvastatin Calcium (Lipitor) 80 mg HS PO Last administered on 09/06/17 20: 46; Admin Dose 80 MG; Start 09/05/17 at 21:00 Insulin Glargine (Lantus) 16 unit DAILY@20 SC Last administered on 09/06/17 21:04; Admin Dose 16 UNIT; Start 09/06/17 at 20:00 Diagnostic Test (Pha) 1 ea 1 ea 02 XX Last administered on 09/07/17 01:17; Admin Dose 1 EA; Start 09/07/17 at 02:00 Sodium Chloride (1/2 NS) 1,000 ml @ 100 mls/hr Q10H IV Last administered on 12:28; Admin Dose 100 MLS/HR; Start 09/07/17 at 12:00 NAE BARBA Sep 07, 2017 17:26
[2017-09-07] MEDS: ATORVASTATIN 80 MG TAB PO SCH (21:00)
[2017-09-07] MEDS: INSULIN GLARGINE [LANtus] 3 ML PEN SC SCH (21:41)
[2017-09-08] VITALS (11 sets, daily range): BP systolic 129–160; BP diastolic 65–81; PULSE 51–77; RESP 16–20
[2017-09-08] MEDS: ACCU-CHEK XX SCH (02:00)
--- NOTE | 2017-09-08 07:40 | CONS ---
DATE OF ADMISSION: 09/04/2017 DATE OF CONSULTATION: HISTORY OF PRESENT ILLNESS: The patient is a 52-year-old with acute onset of right side hemiplegia, gait difficulty, slurred speech, difficulty with talking, which I got a call about her for more cedric luation and treatment. CURRENT MEDICATIONS: Which include: 1. Lantus 16 units once a day. 2. Lipitor 80 mg once a day. 3. Aspirin 325 mg. 4. Lovenox 40 mg once a day. 5. Prednisone 20 mg 3 times a day. 6. Cozaar 100 mg 7. Hydrochlorothiazide 25 mg. 8. Zofran 4 mg every 4 hours. PAST MEDICAL HISTORY: In the form of diabetes, dyslipidemia, hypertension, leukocytosis. PHYSICAL EXAMINATION: On exam today, the patient is alert, awake, and follows simple commands. Sh e looks confused, aphasic. Cranial nerve II: Pupils equal on both sides, reactive to light. Crani al nerves III, IV, and : Extraocular muscles are intact without nystagmus. Cranial nerve V: Equ al sensation to face. Cranial nerve VII: Symmetrical face. Cranial nerve VII: Decreased nasolabi al fold on the right side of the face. Cranial nerve VIII: Decreased hearing bilaterally. Cranial nerves IX and X: Elevates palate. Cranial nerve XI: Elevates shoulder 5/5. Cranial nerve XII: With straight tongue. MOTOR EXAM: On the right side is 0/5, left side is 4/5. Sensation decreased on the right side for light touch and temperature. COORDINATION: Intact on the right-sided weakness. HEART: Regular rate and rhythm. LUNGS: Equal breath sounds. ABDOMEN: Soft, relaxed, nondistended. No tenderness. ASSESSMENT AND PLAN: 1. The patient is a 52-year-old with acute onset of hemiplegia. 2. Left middle cerebral artery stroke. Follow up the patient with aspirin 81 mg. 3. Deep venous thrombosis prophylaxis in the form of Lovenox. 4. Gait difficulty. Will start the patient on physical therapy. 5. Right upper extremity weakness. Follow up the patient with occupational therapy. 6. Underlying hypertension. Keep the blood pressure at the level of 140/90. 7. Diabetes. Follow up the patient with sliding scale insulin and Accu-Cheks. 8. Dyslipidemia. Follow up the patient with Lipitor. 9. Underlying leukocytosis and urinary tract infection. Continue the patient on IV antibiotics. Dictated By: JUDSON ROUSSEAU/KATARZYNA Conf#: [id number] DID#: [id number]
[2017-09-08 08:43] LABS: CALCIUM 8.9 mg/dl (8.4-10.2); CREATININE 0.84 mg/dl (0.44-1.00); PHOSPHORUS 4.4 mg/dl (2.5-4.9); POTASSIUM 3.2 mmol/L (3.5-5.1)
[2017-09-08] MEDS: SOD CHLORIDE 0.45% 1,000 ML IV SCH (08:48)
[2017-09-08] MEDS: INSULIN ASPART [NOVOLOG] 3 ML PEN SC SCH ×5 (08:51→21:34)
[2017-09-08] MEDS: ASPIRIN (EC) 325 MG TAB PO SCH (08:52)
[2017-09-08] MEDS: HYDROCHLOROTHIAZIDE 25 MG TAB PO SCH (08:52)
[2017-09-08] MEDS: predniSONE 20 MG TAB PO SCH ×3 (08:52→21:19)
[2017-09-08] MEDS: LOSARTAN 50 MG TAB PO SCH (08:52)
[2017-09-08] MEDS: ENOXAPARIN 40 MG/0.4 ML SYG SC SCH (08:59)
[2017-09-08] MEDS ORDERED: POTASSIUM CHLORIDE 30 MEQ in DEXTROSE 5% 250 ML IVPB ONE (09:30)
[2017-09-08] MEDS ORDERED: 1/2 NS + KCL 20 MEQ 1,000 ML IV SCH (09:30)
--- NOTE | 2017-09-08 11:51 | PN ---
Date/Time of Note Date/Time of Note DATE: 09/08/17 TIME: 11:45 Assessment/Plan VTE Prophylaxis VTE Prophylaxis Intervention: LMWH Lines/Catheters IV C[facility]ter Type (from [facility]): Peripheral IV Urinary Cath still in place: No Assessment/Plan Chief Complaint/Hosp Course 1. Aphasia and right-sided weakness secondary to left MCA CVA Patient has progression of her CVA, patient started with aphasia and has developed paralysis of the right upper extremity and lower extremity, weakness in the right side has slightly improved today the patient did pass the swallow eval today and will be started on a diet MRI brain shows acute/recent infarcts involving left frontal and parietal lobes as well as left coronal radiata and left lentiform nucleus in the left MCA distribution Brain MRA shows moderate to marked focal stenosis of proximal M1 segment of left middle cerebral artery. Also narrowing and attenuation of distal branches of the left middle cerebral artery Occlusion in the left MCA is not amenable to surgical intervention, MRA of the neck shows no occlusion Neurology consultation appreciated Patient has a family history of CVA, both mother and brother with strokes, hematology consultation for hypercoagulable workup Aspirin and statin PT and speech therapy evaluation appreciated, patient has been clear today by speech therapy to be started on a diet, patient is also now unable to ambulate due to right-sided paralysis, will need to continue PT and will need rehab 2. Diabetes-uncontrolled A1c at 9.5 Sugars now improved continue basal insulin and hold mealtime for now, will resume mealtime NovoLog if sugars begin to rise now that she will be started on a diet impress associate and dietary consultation 3. Hypertension-stable Continue home meds 4. Leukocytosis secondary to UTI Rocephin Follow-up on urine culture Prophylaxis: Lovenox Discharge planning: Patient will ultimately need rehab placement, discussed with shelter case manager Problems: Subjective 24 Hr Interval Summary Subjective hx not possible: pt non-verbal Exam/Review of Systems Vital Signs Vitals Vital Signs Date Time Temp Pulse Resp B/P Pulse Ox O2 Delivery O2 Flow Rate FiO2 09/08/17 08:12 98.1 54 19 160/81 98 09/04/17 17:25 Room Air Intake and Output 09/07/17 09/07/17 09/08/17 15:00 23:00 07:00 Intake Total 300 ml 800 ml Balance 300 ml 800 ml Exam Constitutional: non-verbal Respiratory: clear to auscultation Cardiovascular: regular rate and rhythm Gastrointestinal: soft, No distended Musculoskeletal: nl extremities to inspection Results Result Diagram: 09/05/17 0928 09/08/17 0807 Results 24 hrs Laboratory Tests Test 09/07/17 17:14 09/07/17 21:37 09/08/17 08:07 09/08/17 08:48 Bedside Glucose 164 146 145 Sodium Level 140 Potassium Level 3.2 L Chloride Level 102 Carbon Dioxide Level 27 Anion Gap 14 Blood Urea Nitrogen 15 Creatinine 0.84 Glucose Level 177 Calcium Level 8.9 Phosphorus Level 4.4 Magnesium Level 2.0 Test 09/08/17 11:06 Bedside Glucose 171 Medications Medications Current Medications Ondansetron HCl (Zofran Inj) 4 mg Q6H PRN IV NAUSEA AND/OR VOMITING; Start at 20:00 Acetaminophen (Tylenol Tab) 650 mg Q6H PRN PO PAIN LEVEL 1-3 OR FEVER; Start 09/04/17 at 20:00 Acetaminophen/ Hydrocodone Bitart ([place] (5/325)) 1 tab Q6H PRN PO MODERATE PAIN LEVEL 4-6; Start 09/04/17 at 20:00 Morphine Sulfate (morphine) 2 mg Q4H PRN IV SEVERE PAIN LEVEL 7-10 Last administered on 09/05/17 15:30; Admin Dose 2 MG; Start 09/04/17 at 20:00 Docusate Sodium (Colace) 100 mg Q12H PRN PO CONSTIPATION; Start 09/04/17 at 20 :00 Enoxaparin Sodium (Lovenox) 40 mg DAILY SC Last administered on 09/08/17 08: 59; Admin Dose 40 MG; Start 09/05/17 at 09:00 Prednisone (Prednisone) 20 mg TID PO Last administered on 09/07/17 08:30; Admin Dose 20 MG; Start 09/05/17 at 09:00 Losartan Potassium (Cozaar) 100 mg DAILY PO Last administered on 09/07/17 08: 30; Admin Dose 100 MG; Start 09/05/17 at 09:00 Miscellaneous Information 1 ea NOTE XX ; Start 09/04/17 at 21:30 Glucose (Glutose) 15 gm Q15M PRN PO DECREASED GLUCOSE; Start 09/04/17 at 21:30 Glucose (Glutose) 22.5 gm Q15M PRN PO DECREASED GLUCOSE; Start 09/04/17 at 21: 30 Dextrose (D50w Syringe) 25 ml Q15M PRN IV DECREASED GLUCOSE; Start 09/04/17 at 21:30 Dextrose (D50w Syringe) 50 ml Q15M PRN IV DECREASED GLUCOSE; Start 09/04/17 at 21:30 Glucagon (Glucagen) 1 mg Q15M PRN IM DECREASED GLUCOSE; Start 09/04/17 at 21: 30 Glucose (Glutose) 15 gm Q15M PRN BUCCAL DECREASED GLUCOSE; Start 09/04/17 at 21:30 Hydrochlorothiazide (Hydrochlorothiazide) 25 mg DAILY PO Last administered on 09/07/17 08:31; Admin Dose 25 MG; Start 09/05/17 at 09:00 Aspirin (Ecotrin) 325 mg DAILY PO Last administered on 09/06/17 08:24; Admin Dose 325 MG; Start 09/05/17 at 16:00 Atorvastatin Calcium (Lipitor) 80 mg HS PO Last administered on 09/06/17 20: 46; Admin Dose 80 MG; Start 09/05/17 at 21:00 Insulin Glargine (Lantus) 16 unit DAILY@20 SC Last administered on 09/06/17 21:04; Admin Dose 16 UNIT; Start 09/06/17 at 20:00 Diagnostic Test (Pha) 1 ea 1 ea 02 XX Last administered on 09/07/17 01:17; Admin Dose 1 EA; Start 09/07/17 at 02:00 Potassium Chloride 30 meq/ Dextrose 265 ml @ 88.333 mls/ hr ONCE ONCE IVPB Last administered on 09/08/17 11:03; Admin Dose 88.333 MLS/HR; Start at 09:30; Stop 09/08/17 at 12:29 Potassium Chloride/Sodium Chloride (1/2 NS + KCl 20 Meq) 1,000 ml @ 100 mls/hr Q10H IV Last administered on 09/08/17 11:03; Admin Dose 100 MLS/HR; Start at 09:30 NAE BARBA Sep 08, 2017 11:51
[2017-09-08] MEDS: CEFTRIAXONE 1 GM/50 ML (PMX) 50 ML IVPB SCH (12:57)
[2017-09-08] MEDS: ATORVASTATIN 80 MG TAB PO SCH (21:19)
[2017-09-08] MEDS: INSULIN GLARGINE [LANtus] 3 ML PEN SC SCH (21:35)
[2017-09-09] VITALS (12 sets, daily range): BP systolic 109–133; BP diastolic 52–71; PULSE 53–74; RESP 18–22
[2017-09-09] MEDS: ACCU-CHEK XX SCH (02:18)
[2017-09-09] MEDS ORDERED: GUAIFENESIN/DM 5ML CUP PO PRN (06:30)
[2017-09-09] MEDS: ASPIRIN (EC) 325 MG TAB PO SCH (08:41)
[2017-09-09] MEDS: predniSONE 20 MG TAB PO SCH ×3 (08:41→20:15)
[2017-09-09] MEDS: HYDROCHLOROTHIAZIDE 25 MG TAB PO SCH (08:41)
[2017-09-09] MEDS: LOSARTAN 50 MG TAB PO SCH (08:41)
[2017-09-09] MEDS: ENOXAPARIN 40 MG/0.4 ML SYG SC SCH (08:42)
[2017-09-09] MEDS: INSULIN ASPART [NOVOLOG] 3 ML PEN SC SCH ×7 (08:43→20:22)
[2017-09-09 09:07] LABS: CALCIUM 8.8 mg/dl (8.4-10.2); CREATININE 0.71 mg/dl (0.44-1.00); POTASSIUM 3.9 mmol/L (3.5-5.1)
[2017-09-09] MEDS: CEFTRIAXONE 1 GM/50 ML (PMX) 50 ML IVPB SCH (12:31)
--- NOTE | 2017-09-09 14:23 | HKNOTE ---
DATE OF SERVICE: HISTORY OF PRESENT ILLNESS: The patient is 52 years old, admitted to [facility] w ith right hemiplegia and left middle cerebral artery stroke, gait difficulty, decreased balance. CURRENT MEDICATIONS: Include: 1. Lantus 16 units once a day. 2. Lipitor 80 mg daily. 3. Aspirin 325 mg once daily. 4. Lovenox 40 mg once a day. 5. Prednisone 20 mg 3 times a day. 6. Cozaar 100 mg once a day. 7. Hydrochlorothiazide 25 mg/ 8. Zofran 4 mg q.4h. PAST MEDICAL HISTORY: In the form of diabetes, dyslipidemia, hypertension, leukocytosis. PHYSICAL EXAMINATION: GENERAL: Patient is alert, awake, oriented, following simple commands, looks confused have word fin ding difficulty. MOTOR EXAMINATION: Right side is 1/5, left side 4/5. Sensation decreased on the right side for lig ht touch and temperature. COORDINATION: [id number] test intact on the left, right side with weakness. ASSESSMENT AND PLAN: 1. The patient is a 52-year-old with acute onset of mid cerebral artery ischemic stroke in which th e patient has been given aspirin 81 mg once a day. 2. Right hemiplegia. Follow up the patient with physical therapy and rehabilitation. 3. Deep venous thrombosis prophylaxis in the form of Lovenox. 4. Gait difficulty. We will follow up the patient with physical therapy. 5. Upper extremity weakness. Follow up the patient with occupational therapy. 6. Underlying diabetes. Follow up the patient with Accu-Chek and sliding scale insulin. 7. Dyslipidemia. Give the patient Lipitor 80. Again, thank you for asking me to see the patient with you. Dictated By: JUDSON BASHIR MD NA/NTS Conf#: [id number] DID#: [id number] CC: NAE BARBA MD;*EndCC*
--- NOTE | 2017-09-09 14:59 | PN ---
Date/Time of Note Date/Time of Note DATE: 09/09/17 TIME: 14:55 Assessment/Plan VTE Prophylaxis VTE Prophylaxis Intervention: LMWH Lines/Catheters [facility]from [facility] Peripheral IV Urinary Cath still in place: No Assessment/Plan Chief Complaint/Hosp Course 1. Aphasia and right-sided weakness secondary to left MCA CVA Patient has progression of her CVA, patient started with aphasia and has developed paralysis of the right upper extremity and lower extremity MRI brain shows acute/recent infarcts involving left frontal and parietal lobes as well as left coronal radiata and left lentiform nucleus in the left MCA distribution Brain MRA shows moderate to marked focal stenosis of proximal M1 segment of left middle cerebral artery. Also narrowing and attenuation of distal branches of the left middle cerebral artery Occlusion in the left MCA is not amenable to surgical intervention, MRA of the neck shows no occlusion Neurology consultation appreciated Patient has a family history of CVA, both mother and brother with strokes, hematology consultation for hypercoagulable workup Aspirin and statin PT and speech therapy evaluation appreciated, patient has been started on a diet , patient is also now unable to ambulate due to right-sided paralysis, will need to continue PT and will need rehab, family independence case manager aware of need for rehab placement and placement pending 2. 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 Hypertension-stable Continue home meds 4. Leukocytosis secondary to UTI Continue Rocephin for now, consider discontinuation in the next several days Urine culture shows group B strep Prophylaxis: Lovenox Discharge planning: Patient will ultimately need rehab placement, discussed with family independence case manager Problems: Subjective 24 Hr Interval Summary Subjective hx not possible: pt non-verbal Exam/Review of Systems Vital Signs Vitals Vital Signs Date Time Temp Pulse Resp B/P Pulse Ox O2 Delivery O2 Flow Rate FiO2 09/09/17 12:18 67 09/09/17 12:02 97.9 19 113/59 94 09/08/17 12:16 Room Air Intake and Output 09/08/17 09/08/17 09/09/17 15:00 23:00 07:00 Intake Total 300 ml 120 ml Balance 300 ml 120 ml Exam Constitutional: non-verbal Respiratory: clear to auscultation Cardiovascular: regular rate and rhythm Gastrointestinal: soft, No distended Musculoskeletal: nl extremities to inspection Neurological: focal weakness (Right side) Results Result Diagram: 09/05/17 0928 09/09/17 0736 Results 24 hrs Laboratory Tests Test 09/08/17 17:28 09/08/17 21:17 09/09/17 02:06 09/09/17 07:36 Bedside Glucose 301 H 250 H 159 Sodium Level 140 Potassium Level 3.9 Chloride Level 105 Carbon Dioxide Level 27 Anion Gap 12 Blood Urea Nitrogen 12 Creatinine 0.71 Glucose Level 233 H Calcium Level 8.8 Test 09/09/17 08:40 09/09/17 12:26 Bedside Glucose 198 201 Medications Medications Current Medications Ondansetron HCl (Zofran Inj) 4 mg Q6H PRN IV NAUSEA AND/OR VOMITING; Start at 20:00 Acetaminophen (Tylenol Tab) 650 mg Q6H PRN PO PAIN LEVEL 1-3 OR FEVER; Start 09/04/17 at 20:00 Acetaminophen/ Hydrocodone Bitart ([place] (5/325)) 1 tab Q6H PRN PO MODERATE PAIN LEVEL 4-6; Start 09/04/17 at 20:00 Morphine Sulfate (morphine) 2 mg Q4H PRN IV SEVERE PAIN LEVEL 7-10 Last administered on 09/05/17 15:30; Admin Dose 2 MG; Start 09/04/17 at 20:00 Docusate Sodium (Colace) 100 mg Q12H PRN PO CONSTIPATION; Start 09/04/17 at 20 :00 Enoxaparin Sodium (Lovenox) 40 mg DAILY SC Last administered on 09/09/17 08: 42; Admin Dose 40 MG; Start 09/05/17 at 09:00 Prednisone (Prednisone) 20 mg TID PO Last administered on 09/09/17 12:41; Admin Dose 20 MG; Start 09/05/17 at 09:00 Losartan Potassium (Cozaar) 100 mg DAILY PO Last administered on 09/09/17 08: 41; Admin Dose 100 MG; Start 09/05/17 at 09:00 Miscellaneous Information 1 ea NOTE XX ; Start 09/04/17 at 21:30 Glucose (Glutose) 15 gm Q15M PRN PO DECREASED GLUCOSE; Start 09/04/17 at 21:30 Glucose (Glutose) 22.5 gm Q15M PRN PO DECREASED GLUCOSE; Start 09/04/17 at 21: 30 Dextrose (D50w Syringe) 25 ml Q15M PRN IV DECREASED GLUCOSE; Start 09/04/17 at 21:30 Dextrose (D50w Syringe) 50 ml Q15M PRN IV DECREASED GLUCOSE; Start 09/04/17 at 21:30 Glucagon (Glucagen) 1 mg Q15M PRN IM DECREASED GLUCOSE; Start 09/04/17 at 21: 30 Glucose (Glutose) 15 gm Q15M PRN BUCCAL DECREASED GLUCOSE; Start 09/04/17 at 21:30 Hydrochlorothiazide (Hydrochlorothiazide) 25 mg DAILY PO Last administered on 09/09/17 08:41; Admin Dose 25 MG; Start 09/05/17 at 09:00 Aspirin (Ecotrin) 325 mg DAILY PO Last administered on 09/09/17 08:41; Admin Dose 325 MG; Start 09/05/17 at 16:00 Atorvastatin Calcium (Lipitor) 80 mg HS PO Last administered on 09/08/17 21: 19; Admin Dose 80 MG; Start 09/05/17 at 21:00 Diagnostic Test (Pha) 1 ea 1 ea 02 XX Last administered on 09/09/17 02:18; Admin Dose 1 EA; Start 09/07/17 at 02:00 Ceftriaxone Sodium (Rocephin) 50 ml @ 100 mls/hr Q24H IVPB Last administered on 09/09/17 12:31; Admin Dose 100 MLS/HR; Start 09/08/17 at 13:00 Guaifenesin/ Dextromethorphan (Robitussin Dm Liquid Cup) 10 ml Q4H PRN PO COUGH Last administered on 09/09/17 06:41; Admin Dose 10 ML; Start 09/09/17 at 06:30 Insulin Glargine (Lantus) 20 unit DAILY@20 SC ; Start 09/09/17 at 20:00 NAE BARBA Sep 09, 2017 14:59
[2017-09-09] MEDS ORDERED: NOVO3I SC (17:34)
[2017-09-09] MEDS ORDERED: ENOX40DI12 SC (17:34)
[2017-09-09] MEDS ORDERED: LANT3I SC (17:34)
[2017-09-09] MEDS ORDERED: ASPI325T32 PO (17:34)
[2017-09-09] MEDS ORDERED: ATOR80TA75 PO (17:34)
[2017-09-09] MEDS ORDERED: CIPR500T4 PO (17:44)
--- NOTE | 2017-09-09 17:53 | DS ---
Date/Time of Note Date/Time of Note DATE: 09/09/17 TIME: 17:36 Discharge Summary Admission/Discharge Info Admit Date/Time Sep 04, 2017 at 17:43 Discharge Date/Time Aug Discharge Diagnosis 1. Aphasia and right-sided weakness secondary to left MCA CVA Patient has progression of her CVA, patient started with aphasia and has developed paralysis of the right upper extremity and lower extremity MRI brain shows acute/recent infarcts involving left frontal and parietal lobes as well as left coronal radiata and left lentiform nucleus in the left MCA distribution Brain MRA shows moderate to marked focal stenosis of proximal M1 segment of left middle cerebral artery. Also narrowing and attenuation of distal branches of the left middle cerebral artery Occlusion in the left MCA is not amenable to surgical intervention, MRA of the neck shows no occlusion Neurology consultation appreciated Patient has a family history of CVA, both mother and brother with strokes, hematology consultation for hypercoagulable workup, results pending should follow up as an out-pt Aspirin and statin PT and speech therapy evaluation appreciated, patient has been started on a diet , patient is also now unable to ambulate due to right-sided paralysis, DC to Rehab for further therapy 2. Diabetes-uncontrolled A1c at 9.5 Sugars are still elevated, but will DC prednisone and sugars should improve DC with Lantus 16 u and Novolog 8 u, cont Metformin 3. Hypertension-stable Continue home meds 4. Leukocytosis secondary to UTI s/p Rocephin, DC with Cipro x 3 days Urine culture shows group B strep Patient Condition: Fair Hospital Course Patient is a 52-year-old female with a past medical history of insulin- dependent diabetes, hypertension and obesity. Patient presents with 4 days of aphasia. Patient was in the ED 4 days prior to admission for right-sided facial droop with difficulty speaking, MRI at that time was negative. Pt had persistent Sx's and had another MRI which showed a L MCA infarct. Initially pt had only aphasia but then developed R sided weakness and was unable to tolerate. Pt was seen by Neuro and Hem and hyperoag w/u was initiated. Pt did ultimately pass a swallow eval and was started on a diet. Insulin dose was advanced for sugar control. Pt was felt to require PT/ST and CM arranged for SNF placement. On the day of DC vitals, labs and PE were stable. Home Meds Active Scripts Insulin Glargine* (Lantus*) 100 Unit/Ml Soln, 16 UNIT SC DAILY@20, #1 VIAL Prov:NAE BARBA 09/09/17 Insulin Aspart* (Novolog Insulin Pen*) 100 Unit/Ml Soln, 8 UNIT SC WITH MEALS, # 1 VIAL Prov:NAE BARBA 09/09/17 Aspirin (Aspir-Love) 325 Mg Tablet.dr, 325 MG PO DAILY, #90 Prov:NAE BARBA 09/09/17 Enoxaparin Sodium (Enoxaparin Sodium) 40 Mg/0.4 Ml Syringe, 40 MG SC DAILY, #90 Prov:NAE BARBA 09/09/17 Atorvastatin* (Atorvastatin*) 80 Mg Tablet, 80 MG PO HS, #60 TAB Prov:NAE BARBA 09/09/17 Reported Medications Ibuprofen* (Ibuprofen*) 800 Mg Tab, 800 MG PO TID Y for PAIN, TAB 09/04/17 Cyclobenzaprine Hcl* (Cyclobenzaprine Hcl*) 10 Mg Tablet, 10 MG PO DAILY, #60 TAB 09/04/17 Metformin* (Glucophage*) 1,000 Mg Tablet, 1000 MG PO BID, #60 TAB 10/23/16 Losartan-Hydrochlorothiazide (Losartan-HCTZ) 100-25 Mg Tab, 1 TAB PO DAILY, TAB 10/23/16 Discontinued Reported Medications Valacyclovir HCl (Valacyclovir) 1,000 Mg Tablet, 1000 MG PO TID, TAB FOR 7 DAYS, START DATE 09/03/17 09/04/17 Prednisone* (Prednisone*) 20 Mg Tab, 20 MG PO TID for 17 Days, #50 TAB START DATE 09/03/17 09/04/17 Simvastatin* (Zocor*) 10 Mg Tablet, 10 MG PO QHS, #30 TAB 09/04/17 Insulin Isophan/Regular (Humulin 70/30) 100 Units/Ml Susp, 26 UNITS SC BID, EA 10/23/16 Discontinued Scripts Benzonatate* (Tessalon Perle*) 100 Mg Capsule, 100 MG PO Q8H Y for COUGH, #30 CAP Prov:MALENA RICHMOND PA-C 11/28/16 Azithromycin* (Zithromax*) 250 Mg Tablet, 250 MG PO .NATE DIRECTED, #6 TAB TAKE 500 MG (2 TABS) THE FIRST DAY THEN 250 MG (1 TAB) DAYS 2-5 Prov:MALENA RICHMOND PA-C 11/28/16 Ibuprofen* (Motrin*) 600 Mg Tab, 600 MG PO Q6, #30 TAB Prov:MALENA RICHMOND PA-C 11/28/16 Ibuprofen* (Ibuprofen*) 200 Mg Capsule, 200 MG PO Q6 Y for PAIN LEVEL 6-10, #20 CAP Prov:CORNELIO SELF MD 10/24/16 Cyclobenzaprine Hcl* (Cyclobenzaprine Hcl*) 5 Mg Tablet, 5 MG PO Q8H Y for MUSCLE SPASMS, #20 TAB Prov:CORNELIO SELF MD 10/24/16 Aspirin (Aspirin) 81 Mg Chew, 81 MG PO DAILY, #30 TAB Prov:CORNELIO SELF MD 10/24/16 Follow-up Plan F/U with Physicians at the [facility] Primary Care Provider Jerrell Sutton MD Time spent on discharge: > 30 minutes NAE BARBA Sep 09, 2017 17:50
[2017-09-09] MEDS ORDERED: INSULIN GLARGINE [LANtus] 3 ML PEN SC SCH (20:00)
[2017-09-09] MEDS: ATORVASTATIN 80 MG TAB PO SCH (20:15)
[2017-09-10] VITALS (10 sets, daily range): BP systolic 127–154; BP diastolic 62–78; PULSE 52–75; RESP 17–20
[2017-09-10] MEDS: ACCU-CHEK XX SCH (02:02)
[2017-09-10] MEDS: INSULIN ASPART [NOVOLOG] 3 ML PEN SC SCH ×7 (08:05→20:08)
[2017-09-10] MEDS: predniSONE 20 MG TAB PO SCH ×3 (08:14→20:03)
[2017-09-10] MEDS: LOSARTAN 50 MG TAB PO SCH (08:14)
[2017-09-10] MEDS: ASPIRIN (EC) 325 MG TAB PO SCH (08:14)
[2017-09-10] MEDS: ENOXAPARIN 40 MG/0.4 ML SYG SC SCH (08:19)
--- NOTE | 2017-09-10 10:11 | HKNOTE ---
DATE OF SERVICE: 09/09/2017 HISTORY OF PRESENT ILLNESS: The patient is a 52-year-old status post right hemiplegia, left middle cerebral artery stroke, gait difficulty, diabetes, dyslipidemia. PHYSICAL EXAMINATION: GENERAL: The patient is alert, awake, looks confused, aphasic. CRANIAL NERVES: Cranial nerve II: Pupils equal on both sides, reactive to light. Cranial nerves I II, IV and : Extraocular muscle intact without nystagmus. Cranial nerve V: Equal sensation to f teofilo. Cranial nerve VII: Decreased nasolabial fold on the right side. VIII: Decreased hearing tegan aterally. Cranial nerves IX and X: Elevates palate. Cranial nerve XI: Elevates shoulder . MOTOR: Decreased right side is 2/5. ASSESSMENT AND PLAN: 1. The patient is a 52-year-old status post right hemiplegia with physical therapy and rehabi litation. 2. Left middle cerebral artery stroke. Give the patient aspirin once a day. 3. Deep venous thrombosis prophylaxis in the form of Lovenox 40 mg once a day. 4. Underlying diabetes. Follow up the patient's sliding scale insulin. Accu-Chek twice a day. 5. Dyslipidemia. Continue the patient on Lipitor 80 mg once a day. Dictated By: JUDSON ROUSSEAU/KATARZYNA Conf#: [id number] DID#: [id number]
[2017-09-10] MEDS: HYDROCHLOROTHIAZIDE 25 MG TAB PO SCH (12:00)
--- NOTE | 2017-09-10 13:10 | PN ---
Date/Time of Note Date/Time of Note DATE: 09/10/17 TIME: 13:07 Assessment/Plan VTE Prophylaxis VTE Prophylaxis Intervention: LMWH Lines/Catheters IV Catheter Type (from Nrsg): Peripheral IV Urinary Cath still in place: No Assessment/Plan Chief Complaint/Hosp Course 52 yo sherrill wtih DMI, hypreretnsion with acute L MCA stroke Stroke: - BP controlled - Continue aspirin, statin and telemetry monitoring - PT/OT DMII with hyperglycemia: - Increase lantus to 30 units qhs, moderate novolog, adjust as needed Start low dose lisinopril Discharge to [facility] when arranged Problems: Subjective 24 Hr Interval Summary Free Text/Dictation SNF placement yesterday refused by family at bedside, was unaware of yesterday's developments His concern is gurgling/cough yesterday by patient Exam/Review of Systems Vital Signs Vitals Vital Signs Date Time Temp Pulse Resp B/P Pulse Ox O2 Delivery O2 Flow Rate FiO2 09/10/17 12:06 97.9 60 19 127/62 98 09/08/17 12:16 Room Air Intake and Output 09/09/17 09/09/17 09/10/17 15:00 23:00 07:00 Intake Total 750 ml 250 ml Balance 750 ml 250 ml Exam Appears well, NAD Aphasia Responds to commands easily No distress Hemiplegia noted Results Result Diagram: 09/09/17 0736 Results 24 hrs Laboratory Tests Test 09/09/17 17:08 09/09/17 20:15 09/10/17 02:00 09/10/17 07:58 Bedside Glucose 280 H 194 232 H 202 Test 09/10/17 12:02 Bedside Glucose 239 H Medications Medications Current Medications Ondansetron HCl (Zofran Inj) 4 mg Q6H PRN IV NAUSEA AND/OR VOMITING; Start at 20:00 Acetaminophen (Tylenol Tab) 650 mg Q6H PRN PO PAIN LEVEL 1-3 OR FEVER; Start 09/04/17 at 20:00 Acetaminophen/ Hydrocodone Bitart ([place] (5/325)) 1 tab Q6H PRN PO MODERATE PAIN LEVEL 4-6; Start 09/04/17 at 20:00 Morphine Sulfate (morphine) 2 mg Q4H PRN IV SEVERE PAIN LEVEL 7-10 Last administered on 09/05/17t 15:30; Admin Dose 2 MG; Start 09/04/17 at 20:00 Docusate Sodium (Colace) 100 mg Q12H PRN PO CONSTIPATION; Start 09/04/17 at 20 :00 Enoxaparin Sodium (Lovenox) 40 mg DAILY SC Last administered on 09/10/17 08: 19; Admin Dose 40 MG; Start 09/05/17 at 09:00 Prednisone (Prednisone) 20 mg TID PO Last administered on 09/10/17 08:14; Admin Dose 20 MG; Start 09/05/17 at 09:00 Losartan Potassium (Cozaar) 100 mg DAILY PO Last administered on 09/10/17 08: 14; Admin Dose 100 MG; Start 09/05/17 at 09:00 Miscellaneous Information 1 ea NOTE XX ; Start 09/04/17 at 21:30 Glucose (Glutose) 15 gm Q15M PRN PO DECREASED GLUCOSE; Start 09/04/17 at 21:30 Glucose (Glutose) 22.5 gm Q15M PRN PO DECREASED GLUCOSE; Start 09/04/17 at 21: 30 Dextrose (D50w Syringe) 25 ml Q15M PRN IV DECREASED GLUCOSE; Start 09/04/17 at 21:30 Dextrose (D50w Syringe) 50 ml Q15M PRN IV DECREASED GLUCOSE; Start 09/04/17 at 21:30 Glucagon (Glucagen) 1 mg Q15M PRN IM DECREASED GLUCOSE; Start 09/04/17 at 21: 30 Glucose (Glutose) 15 gm Q15M PRN BUCCAL DECREASED GLUCOSE; Start 09/04/17 at 21:30 Hydrochlorothiazide (Hydrochlorothiazide) 25 mg DAILY PO Last administered on 09/10/17 12:00; Admin Dose 25 MG; Start 09/05/17 at 09:00 Aspirin (Ecotrin) 325 mg DAILY PO Last administered on 09/10/17 08:14; Admin Dose 325 MG; Start 09/05/17 at 16:00 Atorvastatin Calcium (Lipitor) 80 mg HS PO Last administered on 09/09/17 20: 15; Admin Dose 80 MG; Start 09/05/17 at 21:00 Diagnostic Test (Pha) 1 ea 1 ea 02 XX Last administered on 09/10/17 02:02; Admin Dose 1 EA; Start 09/07/17 at 02:00 Ceftriaxone Sodium (Rocephin) 50 ml @ 100 mls/hr Q24H IVPB Last administered on 09/09/17 12:31; Admin Dose 100 MLS/HR; Start 09/08/17 at 13:00 Guaifenesin/ Dextromethorphan (Robitussin Dm Liquid Cup) 10 ml Q4H PRN PO COUGH Last administered on 09/09/17 06:41; Admin Dose 10 ML; Start 09/09/17 at 06:30 Insulin Glargine (Lantus) 30 unit DAILY@20 SC ; Start 09/10/17 at 20:00; Status RAUL BOURGEOIS MD Sep 10, 2017 13:10
[2017-09-10] MEDS ORDERED: LISINOPRIL 5 MG TAB NGT SCH (13:30)
[2017-09-10] MEDS: CEFTRIAXONE 1 GM/50 ML (PMX) 50 ML IVPB SCH (14:30)
[2017-09-10] MEDS ORDERED: INSULIN GLARGINE [LANtus] 3 ML PEN SC SCH (20:00)
[2017-09-10] MEDS: ATORVASTATIN 80 MG TAB PO SCH (20:12)
[2017-09-11] VITALS (10 sets, daily range): BP systolic 127–157; BP diastolic 63–74; PULSE 55–71; RESP 17–18
[2017-09-11] MEDS: ACCU-CHEK XX SCH (02:00)
[2017-09-11] MEDS: INSULIN ASPART [NOVOLOG] 3 ML PEN SC SCH ×6 (08:36→17:06)
[2017-09-11] MEDS: predniSONE 20 MG TAB PO SCH ×2 (08:37→12:24)
[2017-09-11] MEDS: ENOXAPARIN 40 MG/0.4 ML SYG SC SCH (08:37)
[2017-09-11] MEDS: LOSARTAN 50 MG TAB PO SCH (08:37)
[2017-09-11] MEDS: ASPIRIN (EC) 325 MG TAB PO SCH (08:37)
[2017-09-11] MEDS: HYDROCHLOROTHIAZIDE 25 MG TAB PO SCH (08:38)
[2017-09-11 10:40] LABS: CALCIUM 9.5 mg/dl (8.4-10.2); CREATININE 0.74 mg/dl (0.44-1.00); POTASSIUM 3.5 mmol/L (3.5-5.1)
[2017-09-11] MEDS: CEFTRIAXONE 1 GM/50 ML (PMX) 50 ML IVPB SCH (12:24)
--- NOTE | 2017-09-11 13:43 | PN ---
Date/Time of Note Date/Time of Note DATE: 09/11/17 TIME: 13:43 Assessment/Plan VTE Prophylaxis VTE Prophylaxis Intervention: SCD's Lines/Catheters IV [facility]ter Type [facility]from [facility] Urinary Cath still in place: No Assessment/Plan Assessment/Plan 1. Aphasia and right-sided weakness secondary to left MCA CVA- stable - Patient has progression of her CVA, patient started with aphasia and has developed paralysis of the right upper extremity and lower extremity that remains the same. no further progression at this time - MRI brain shows acute/recent infarcts involving left frontal and parietal lobes as well as left coronal radiata and left lentiform nucleus in the left MCA distribution - Brain MRA shows moderate to marked focal stenosis of proximal M1 segment of left middle cerebral artery. Also narrowing and attenuation of distal branches of the left middle cerebral artery - Neurology consultation appreciated - Patient has a family history of CVA, both mother and brother with strokes, hematology consultation for hypercoagulable workup appreciated and will need to follow up results as outpatient - Continue on Aspirin and statin - PT and speech therapy evaluation appreciated, patient has been started on a diet, patient is also now unable to ambulate due to right-sided paralysis, will need to continue PT and will need rehab, block and case maker aware of need for rehab placement and placement pending. Spoke with family who are agreeable to Rehab placement 2. Diabetes-uncontrolled - A1c at 9.5 - Sugars are still elevated, have increased both basal and mealtime insulin today - medical educator and dietary consultation 3. Hypertension-stable - Continue home meds 4. Leukocytosis secondary to UTI - completed course of antibiotics - Urine culture shows group B strep <10K. 5. Disposition - Will need Rehab placement - Awaiting neuro input Subjective 24 Hr Interval Summary Free Text/Dictation Patient still with RUE and RLE weakness and aphasia. Family at bedside and questions answered. No acute overnight events. Exam/Review of Systems Vital Signs Vitals Vital Signs Date Time Temp Pulse Resp B/P Pulse Ox O2 Delivery O2 Flow Rate FiO2 09/11/17 12:14 71 09/11/17 12:10 98.3 18 127/69 95 09/08/17 12:16 Room Air Intake and Output 09/10/17 09/10/17 09/11/17 15:00 23:00 07:00 Intake Total 400 ml Balance 400 ml Exam Constitutional: alert, oriented, other (aphasic) Head: atraumatic, normocephalic Eyes: EOMI, PERRL ENMT: mucosa pink and moist Neck: supple Respiratory: clear to auscultation, No crackles/rales, No wheezing Cardiovascular: regular rate and rhythm, No edema, No systolic murmur Gastrointestinal: soft, No distended, No rebound or guarding Extremities: No edema Neurological: focal weakness, No nl speech, No nl strength (RUE/RLE hemiplegia) Skin: No rash or lesions Results Result Diagram: 09/11/17 0800 Results 24 hrs Laboratory Tests Test 09/10/17 17:12 09/10/17 20:01 09/11/17 02:34 09/11/17 08:00 Bedside Glucose 306 H 303 H 163 Sodium Level 143 Potassium Level 3.5 Chloride Level 101 Carbon Dioxide Level 30 Anion Gap 16 Blood Urea Nitrogen 17 Creatinine 0.74 Glucose Level 184 Calcium Level 9.5 Test 09/11/17 08:28 09/11/17 12:29 Bedside Glucose 166 194 Medications Medications Current Medications Ondansetron HCl (Zofran Inj) 4 mg Q6H PRN IV NAUSEA AND/OR VOMITING; Start at 20:00 Acetaminophen (Tylenol Tab) 650 mg Q6H PRN PO PAIN LEVEL 1-3 OR FEVER; Start 09/04/17 at 20:00 Acetaminophen/ Hydrocodone Bitart (Mosinee (5/325)) 1 tab Q6H PRN PO MODERATE PAIN LEVEL 4-6; Start 09/04/17 at 20:00 Morphine Sulfate (morphine) 2 mg Q4H PRN IV SEVERE PAIN LEVEL 7-10 Last administered on 09/05/17 15:30; Admin Dose 2 MG; Start 09/04/17 at 20:00 Docusate Sodium (Colace) 100 mg Q12H PRN PO CONSTIPATION; Start 09/04/17 at 20 :00 Enoxaparin Sodium (Lovenox) 40 mg DAILY SC Last administered on 09/11/17 08: 37; Admin Dose 40 MG; Start 09/05/17 at 09:00 Prednisone (Prednisone) 20 mg TID PO Last administered on 09/11/17 12:24; Admin Dose 20 MG; Start 09/05/17 at 09:00 Losartan Potassium (Cozaar) 100 mg DAILY PO Last administered on 09/11/17 08: 37; Admin Dose 100 MG; Start 09/05/17 at 09:00 Miscellaneous Information 1 ea NOTE XX ; Start 09/04/17 at 21:30 Glucose (Glutose) 15 gm Q15M PRN PO DECREASED GLUCOSE; Start 09/04/17 at 21:30 Glucose (Glutose) 22.5 gm Q15M PRN PO DECREASED GLUCOSE; Start 09/04/17 at 21: 30 Dextrose (D50w Syringe) 25 ml Q15M PRN IV DECREASED GLUCOSE; Start 09/04/17 at 21:30 Dextrose (D50w Syringe) 50 ml Q15M PRN IV DECREASED GLUCOSE; Start 09/04/17 at 21:30 Glucagon (Glucagen) 1 mg Q15M PRN IM DECREASED GLUCOSE; Start 09/04/17 at 21: 30 Glucose (Glutose) 15 gm Q15M PRN BUCCAL DECREASED GLUCOSE; Start 09/04/17 at 21:30 Hydrochlorothiazide (Hydrochlorothiazide) 25 mg DAILY PO Last administered on 09/11/17 08:38; Admin Dose 25 MG; Start 09/05/17 at 09:00 Aspirin (Ecotrin) 325 mg DAILY PO Last administered on 09/11/17 08:37; Admin Dose 325 MG; Start 09/05/17 at 16:00 Atorvastatin Calcium (Lipitor) 80 mg HS PO Last administered on 09/10/17 20: 12; Admin Dose 80 MG; Start 09/05/17 at 21:00 Diagnostic Test (Pha) 1 ea 1 ea 02 XX Last administered on 09/10/17 02:02; Admin Dose 1 EA; Start 09/07/17 at 02:00 Ceftriaxone Sodium (Rocephin) 50 ml @ 100 mls/hr Q24H IVPB Last administered on 09/11/17 12:24; Admin Dose 100 MLS/HR; Start 09/08/17 at 13:00 Guaifenesin/ Dextromethorphan (Robitussin Dm Liquid Cup) 10 ml Q4H PRN PO COUGH Last administered on 09/09/17 06:41; Admin Dose 10 ML; Start 09/09/17 at 06:30 Insulin Glargine (Lantus) 30 unit DAILY@20 SC Last administered on 12/25/17at 20:07; Admin Dose 30 UNIT; Start 09/10/17 at 20:00 PEDRO WARD MD Sep 11, 2017 13:43
--- NOTE | 2017-09-11 18:34 | DS ---
Date/Time of Note Date/Time of Note DATE: 09/11/17 TIME: 18:32 Discharge Summary Admission/Discharge Info Admit Date/Time Sep 04, 2017 at 17:43 Discharge Date/Time Discharge Diagnosis 1. Aphasia and right-sided weakness secondary to left MCA CVA 2. Diabetes-uncontrolled 3. Hypertension-stable 4. Leukocytosis secondary to UTI Patient Condition: Stable Consults Neurology Procedures PROCEDURE: US Carotids. CLINICAL INDICATION: CVA. TECHNIQUE: Multiple sonographic of the carotid arteries were obtained utilizing white scale imaging. Color and Doppler imaging was performed. The images were reviewed on a PACS workstation. COMPARISON: No prior studies are available for comparison. FINDINGS: Location: Right Left CCA 42.6 cm/sec 60.4 cm/sec Prox ICA 56.1 cm/sec 42.7 cm/sec Mid ICA 53.9 cm/sec 35.7 cm/sec Dist ICA 71.1 cm/sec 55.0 cm/sec ECA 166.9 cm/sec 56.2 cm/sec ICA/CCA: 1.7 0.9 Antegrade flow is seen within the vertebral arteries bilaterally. Mild plaque is seen within the carotid system bilaterally. However, no evidence for hemodynamically significant stenosis or occlusion is identified. IMPRESSION: 1. No hemodynamically significant stenosis in the cervical carotid arteries. 2. Antegrade flow in both vertebral arteries. PROCEDURE: Chest x-ray CLINICAL INDICATION: Stroke TECHNIQUE: Chest single view COMPARISON: 10/23/2016 FINDINGS: The heart is normal in size. The pulmonary vessels are normal in caliber. There are calcified left hilar lymph nodes and calcified granuloma in the left mid lung. Lungs otherwise clear. The costophrenic angles are sharp. The visualized bony thorax is unremarkable. IMPRESSION: No acute cardiopulmonary disease. Old granulomatous disease PROCEDURE: CT Brain without contrast. CLINICAL INDICATION: Stroke symptoms. TECHNIQUE: A CT of the brain was performed on a [employer] 64-slice CT scanner utilizing axial imaging from the skull base through the vertex without IV contrast. Multiplanar reformatted images were made. Images were reviewed on a PACS workstation. The CTDIvol is 41.44 mGy and the DLP is 720.23 mGycm. One or the following dose reduction techniques were used: -Automated exposure control. -Adjustment of the mA and/or KV according to patient's size. -Use of iterative reconstruction technique. DICOM images are available. COMPARISON: CT of the brain from 08/31/2017. FINDINGS: There is no intracranial hemorrhage, mass effect, or midline shift. No extra- axial fluid collection is seen. The ventricles and sulci are normal in size and configuration. The density of the brain is normal, and the white white matter differentiation appears well-preserved. The visualized paranasal sinuses and osseous structures are grossly unremarkable. IMPRESSION: 1. No acute intracranial process identified. No significant change since 2016. PROCEDURE: MRA Neck without contrast. CLINICAL INDICATION: Stroke, focal neurologic deficit TECHNIQUE: 2D and 3-D [id number] MR Angiography of the neck was performed. No intravenous contrast was administered. 3-D re-formations were performed. COMPARISON: Carotid ultrasound 09/04/2017 FINDINGS: The right common carotid artery is normally patent. The carotid bulb appears normal. The right internal carotid artery appears unremarkable, without focal stenosis or dilatation. The left common carotid artery is normally patent. The carotid bulb appears normal. The left internal carotid artery appears unremarkable, without focal stenosis or dilatation. The bilateral vertebral arteries appear unremarkable, without definite focal stenosis or dilatation. There is limited evaluation of the vertebral artery origins, with moderate signal loss at the right vertebral artery origin that may be artifactual.. IMPRESSION: 1. Normal appearing patency of the bilateral common and internal carotid arteries, without significant stenosis or occlusion. 2. Likely normal patency of the bilateral cervical vertebral arteries. There is moderate focal volume loss of the right vertebral artery origin which may be artifactual. PROCEDURE: MRA Brain. CLINICAL INDICATION: Neurological deficit. TECHNIQUE: An MRA of the brain was performed without intravenous contrast utilizing the following sequences: 3-D [id number] images through the intracranial vasculature with post processed maximal intensity projections in multiple planes. COMPARISON: Concurrent MRI of the brain. FINDINGS: Mild narrowing of cavernous, and supraclinoid internal carotid artery segments is noted. The petrous internal carotid artery segments are patent without evidence of significant stenosis. The A1 segment of right LUZ is hypoplastic. The A1 segment of left LUZ is patent and gives off bilateral A2 segments. There is moderate to marked focal stenosis of proximal M1 segment of left middle cerebral artery. There is also narrowing and attenuation of distal branches of the left middle cerebral artery. Otherwise the proximal anterior cerebral arteries and right middle cerebral artery are patent without significant stenosis. There is predominant origin of right posterior cerebral artery with hypoplastic right P1 segment. The intradural vertebral arteries, basilar artery and posterior cerebral arteries are patent without evidence of significant focal stenosis. No aneurysms are identified. IMPRESSION: 1. Moderate to marked focal stenosis of proximal M1 segment of left middle cerebral artery. Also narrowing and attenuation of distal branches of the left middle cerebral artery. 2. Mild narrowing of cavernous, and supraclinoid internal carotid artery segments 3. Otherwise no significant stenosis in the remainder of the major intracranial arteries. PROCEDURE: MRI Brain without contrast. CLINICAL INDICATION: Neurological deficit. TECHNIQUE: An MRI of the brain was performed utilizing the following sequences : Sagittal and axial T1 weighted, axial T2 weighted, axial diffusion weighted with ADC mapping, coronal GRE, and axial FLAIR. COMPARISON: Brain CT 09/04/2017. FINDINGS: There are multiple foci of restricted diffusion involving left frontal and parietal lobes as well as left coronal radiata and left lentiform nucleus consistent with acute/recent infarcts in the left MCA distribution. No hypointense signal abnormalities are seen on the GRE images to suggest the presence of blood degradation products. There is no evidence of intracranial hemorrhage, mass effect, or midline shift. No extra-axial fluid collections are seen. The ventricles and sulci are minimally enlarged indicative of volume loss. There are additional mild scattered foci of T2 FLAIR hyperintensity in the periventricular, deep, and subcortical white matter, which are nonspecific in etiology but likely reflect chronic small vessel ischemic changes. No abnormal intracranial vascular flow void is noted. The visualized paranasal sinuses are grossly clear. IMPRESSION: 1. Acute/recent infarcts involving left frontal and parietal lobes as well as left coronal radiata and left lentiform nucleus in the left MCA distribution. 2. Mild chronic small vessel ischemic changes. 3. Minimal generalized cerebral volume loss. Hx of Present Illness Patient is a 52-year-old female with a past medical history of insulin- dependent diabetes, hypertension and obesity. Patient presents with 4 days of aphasia. Patient was in the ED 4 days ago where she endorsed a headache and started to have a right-sided facial droop with difficulty speaking. She reportedly almost fell, but she was caught by her at the time. She was evaluated in the emergency department and CT scan and MRI of the head did not reveal any obvious acute ischemia or hemorrhage. Remaining workup was negative patient was told to follow-up with her PCP Dr. Sutton which she did today and there was concern that the patient could be having a stroke and referred her to the emergency department for admission and evaluation by neurology. Patient is aphasic and unable to provide any history, history is provided by who is bedside. Per the patient's symptoms have not improved, she is able to ambulate but with some difficulty. Patient also has progressive decreased sensation and inability to utilize her right hand. Patient's primary care physician spoke with the an office neurologist who felt that it was appropriate that the patient come to the hospital for an inpatient evaluation. Patient currently denies any headache and repeat CT head is negative. Hospital Course Patient is a 52-year-old female with a past medical history of insulin- dependent diabetes, hypertension and obesity. Patient presents with 4 days of aphasia. Patient was in the ED 4 days prior to admission for right-sided facial droop with difficulty speaking, MRI at that time was negative. Pt had persistent Sx's and had another MRI which showed a L MCA infarct. Initially pt had only aphasia but then developed R sided weakness and was unable to tolerate. Pt was seen by Neuro and Hem and hyperoag w/u was initiated. Pt did ultimately pass a swallow eval and was started on a diet. Insulin dose was advanced for sugar control. Pt was felt to require PT/ST and CM arranged for SNF placement. On the day of DC vitals, labs and PE were stable. Home Meds Active Scripts Ciprofloxacin Hcl* (Ciprofloxacin Hcl*) 500 Mg Tablet, 500 MG PO BID for 3 Days , TAB Prov:NAE BARBA 09/09/17 Insulin Glargine* (Lantus*) 100 Unit/Ml Soln, 16 UNIT SC DAILY@20, #1 VIAL Prov:NAE BARBA 09/09/17 Insulin Aspart* (Novolog Insulin Pen*) 100 Unit/Ml Soln, 8 UNIT SC WITH MEALS, # 1 VIAL Prov:NAE BARBA 09/09/17 Aspirin (Aspir-Loev) 325 Mg Tablet.dr, 325 MG PO DAILY, #90 Prov:NAE BARBA 09/09/17 Enoxaparin Sodium (Enoxaparin Sodium) 40 Mg/0.4 Ml Syringe, 40 MG SC DAILY, #90 Prov:NAE BARBA 09/09/17 Atorvastatin* (Atorvastatin*) 80 Mg Tablet, 80 MG PO HS, #60 TAB Prov:NAE BARBA 09/09/17 Reported Medications Ibuprofen* (Ibuprofen*) 800 Mg Tab, 800 MG PO TID Y for PAIN, TAB 09/04/17 Cyclobenzaprine Hcl* (Cyclobenzaprine Hcl*) 10 Mg Tablet, 10 MG PO DAILY, #60 TAB 09/04/17 Metformin* (Glucophage*) 1,000 Mg Tablet, 1000 MG PO BID, #60 TAB 10/23/16 Losartan-Hydrochlorothiazide (Losartan-HCTZ) 100-25 Mg Tab, 1 TAB PO DAILY, TAB 10/23/16 Discontinued Reported Medications Valacyclovir HCl (Valacyclovir) 1,000 Mg Tablet, 1000 MG PO TID, TAB FOR 7 DAYS, START DATE 09/03/17 09/04/17 Prednisone* (Prednisone*) 20 Mg Tab, 20 MG PO TID for 17 Days, #50 TAB START DATE 09/03/17 09/04/17 Simvastatin* (Zocor*) 10 Mg Tablet, 10 MG PO QHS, #30 TAB 09/04/17 Follow-up Plan F/U with Physicians at the [facility] Primary Care Provider Jerrell Sutton MD Time spent on discharge: > 30 minutes Pending Labs Laboratory Tests Test 09/10/17 20:01 09/11/17 02:34 09/11/17 08:00 09/11/17 08:28 Bedside Glucose 303mg/dL (70-220) 163mg/dL (70-220) 166mg/dL (70-220) Sodium Level 143mmol/L (135-144) Potassium Level 3.5mmol/L (3.5-5.1) Chloride Level 101mmol/L (97-110) Carbon Dioxide Level 30mmol/L (21-31) Anion Gap 16 (8-16) Blood Urea Nitrogen 17mg/dl (7-20) Creatinine 0.74mg/dl (0.44-1.00) Glucose Level 184mg/dl (70-220) Calcium Level 9.5mg/dl (8.4-10.2) Test 09/11/17 12:29 09/11/17 16:55 Bedside Glucose 194mg/dL (70-220) 272mg/dL (70-220) PEDRO WARD MD Sep 11, 2017 18:34 Blood Urea Nitrogen 17mg/dl (7-20) Creatinine 0.74mg/dl (0.44-1.00) Glucose Level 184mg/dl (70-220) Calcium Level 9.5mg/dl (8.4-10.2) Test 09/11/17 12:29 09/11/17 16:55 Bedside Glucose 194mg/dL (70-220) 272mg/dL (70-220) PEDRO WARD MD Sep 11, 2017 18:34
== END 2017-09-11 20:00 | DRG 65 ==
LOC: E/R 15:32 → MS4 17:43
PROVIDERS: ADMIT Internal Medicine; ATTEND Internal Medicine
DX: I63.512 Cerebral infarction due to unspecified occlusion or stenosis of left middle cerebral artery (principal); N39.0 Urinary tract infection, site not specified; E11.65 Type 2 diabetes mellitus with hyperglycemia; I10 Essential (primary) hypertension; G81.91 Hemiplegia, unspecified affecting right dominant side; R47.01 Aphasia; E78.5 Hyperlipidemia, unspecified; E66.9 Obesity, unspecified; Z68.31 Body mass index [BMI] 31.0-31.9, adult; R29.810 Facial weakness; Z79.4 Long term (current) use of insulin
CPT/HCPCS: 36415; 70450; 70544; 70549; 70551; 71010; 80048; 80061; 80307; 81001; 81240; 82962; 83036; 83090; 83735; 83890; 84100; 84439; 84443; 84484; 85025; 85300; 85302; 85305; 85610; 85613; 85730; 86146; 86147; 87086; 92507; 92526; 92610; 93005; 93306; 93880; 97110; 97116; 97530; J0696; J1650; J1815; J2270; J3480; J7070; J7512

== ENCOUNTER 2018-01-24 02:20 | Inpatient (IN) | END 2018-01-24 15:35 | disposition home or self-care (01) | DRG 558 ==

== ENCOUNTER 2018-05-14 12:24 | Emergency (ER) | END 2018-05-14 16:05 | disposition home or self-care (01) ==